=== PATIENT | female | born 1975 | race Caucasian/White ===

== ENCOUNTER 2021-02-17 12:57 | Outpatient (REF) | payer OTHER, SELFPAY ==
--- NOTE | 2021-02-17 13:55 | MHC.AU.HAS ---
Hearing Aid Evaluation Date of Visit: 02/17/21 Historical Information: Description of Hearing: Overall mild/moderate mixed hearing loss in the right ear. Left ear is normal from 250-4000 Hz, sloping to moderate sensorineural hearing loss at 8000 Hz Summary: Patient is followed by [facility]. She was medically cleared for a right-sided hearing aid by Dr. Sequeira. Patient reports she has worn a hearing aid in the past, but lost it around 2011 when it fell out of her ear. Hearing aid options were discussed. Patient would like a BTE style, as she feels it would stay in her ear better than her previous one. She would also like rechargeable for ease of use. Hearing Aid Prescription: Based on the individual?s shared listening needs, communication environments, dexterity, desire for connectivity, and personal preferences, the following prescription for amplification has been made: Right ear: Compliance Aide: Indow Windows Model: Evolv AI 1600 BTE R Battery Size: Rechargeable Color: White Type of Mold: Microsonic M2000 Skeleton Red Action Taken/Action Needed: Earmold Impressions Taken Hearing Instrument Fitting to be scheduled when materials arrive Primary Diagnosis: H90.71 Mixed HL, Unilateral, Right Ear, W/Unrestricted Contralateral Signature: Provider: Floyd Smith, CCC-A
== END 2021-02-17 12:58 | disposition home or self-care (01) ==
LOC: HO.HAP 12:57
PROVIDERS: Visit Provider Internal Medicine
DX: Z46.1 Encounter for fitting and adjustment of hearing aid (principal); H90.71 Mixed conductive and sensorineural hearing loss, unilateral, right ear, with unrestricted hearing on the contralateral side
CPT/HCPCS: 92590; V5275

== ENCOUNTER 2021-03-24 12:36 | Outpatient (REF) | payer OTHER, SELFPAY | END 2021-03-24 12:37 | disposition home or self-care (01) | LOC: HO.HAP 12:36 | PROVIDERS: PCP Internal Medicine; Visit Provider Otolaryngology | DX: Z46.1 Encounter for fitting and adjustment of hearing aid (principal); H90.71 Mixed conductive and sensorineural hearing loss, unilateral, right ear, with unrestricted hearing on the contralateral side | CPT/HCPCS: V5011; V5020; V5241; V5257; V5264 ==

== ENCOUNTER 2021-06-16 11:36 | Outpatient (REF) | payer OTHER, SELFPAY ==
--- NOTE | 2021-06-16 13:56 | MHC.AU.FUR ---
Hearing Instrument Follow-Up Date of Visit: 06/16/21 Right Ear: Pusher Operator: Cyndee Model: Evolv AI 1600 BTE R Serial Number: [id number] Repair Warranty: 06/11/2024 Loss and Damage Warranty: 06/11/2024 Battery Size: Rechargeable Color: White Tubing: Double Bend Type of Mold: Microsonic M2000 Skeleton Red Dispensed By: [facility] Date of Fittin03/24/2021 Follow-Up Summary: Patient reports she is experiencing irritation/discomfort after the aid is in the ear for awhile. Has progressed since being fit with aid. Otoscopy is unremarkable, but patient has not been wearing the aid for several weeks. After asking several questions about the problem, decided to try a power and a closed dome on slim tube with patient still reporting discomfort when placed in ear. Asked more questions. Patient has history of Fibromyalgia which fluctuates and I question if a flair up is making the nerve endings in the ear canal more sensitive. Totally cut down the canal length of the earmold with patient reporting improved comfort while in office. Recommendations (Other): Advised patient to call me next week to discuss how she is feeling. If all is well, I will have her use as is. If still a problem, will order a remake of the right earmold changing to acrylic material, decreasing to very short canal length, and make clear (possibly the red dye may be causing a reaction). Diagnosis Code(s):Primary Diagnosis: H90.71 Mixed HL, Unilateral, Right Ear, W/Unrestricted Contralateral Signature:Provider: Floyd Abdullahi, [facility]
== END 2021-06-16 11:37 | disposition home or self-care (01) ==
LOC: HO.HAP 11:36
PROVIDERS: Visit Provider Otolaryngology
DX: Z13.89 Encounter for screening for other disorder (principal)

== ENCOUNTER → 2021-10-27 13:35 | Outpatient (BNVA) | payer OTHER, SELFPAY | PROVIDERS: PCP Internal Medicine; Visit Provider Nurse Practitioner Family | DX: M25.511 Pain in right shoulder (principal); M25.562 Pain in left knee; G89.29 Other chronic pain | CPT/HCPCS: 99202 ==

== ENCOUNTER 2022-01-17 06:03 | Outpatient (REF) | payer OTHER, SELFPAY ==
--- NOTE | ~2022-01-17 | FL_ITS ---
EXAMINATION: XR FLUOROSCOPY WITH IMAGES CLINICAL INFORMATION: Pain right shoulder. COMPARISON: None. TECHNIQUE: Fluoroscopy performed by Juli. Fluoroscopy time: 0.3 minutes. Cumulative Dose: 4.56 mGy. DAP: 0.445 Gy-cm2. Images: 2. FINDINGS: There is a needle positioned along the superior aspect of the scapula with contrast opacifying the soft tissues. No visible acute fracture or bony abnormality seen. FL/FL guidance in treatment room IMPRESSION: Fluoroscopy guidance was provided to the referrer for pain management.
== END 2022-01-17 06:04 | disposition home or self-care (01) ==
LOC: CF 06:03
PROVIDERS: Visit Provider Internal Medicine
DX: M25.511 Pain in right shoulder (principal); G89.29 Other chronic pain
CPT/HCPCS: 64418

== ENCOUNTER → 2022-05-25 10:03 | Outpatient (BNVA) | payer OTHER, SELFPAY | PROVIDERS: PCP Internal Medicine; Visit Provider Internal Medicine | DX: M25.511 Pain in right shoulder (principal); G89.29 Other chronic pain; M79.18 Myalgia, other site | CPT/HCPCS: 20553; 99212 ==

== ENCOUNTER → 2022-07-06 10:46 | Outpatient (BNVA) | payer OTHER, SELFPAY | PROVIDERS: PCP Internal Medicine; Visit Provider Internal Medicine | DX: M25.511 Pain in right shoulder (principal); G89.29 Other chronic pain | CPT/HCPCS: 99212 ==

== ENCOUNTER 2022-09-05 05:49 | Outpatient (REF) | payer OTHER, SELFPAY ==
--- NOTE | ~2022-09-05 | FL_ITS ---
EXAMINATION: XR FLUOROSCOPY WITH IMAGES CLINICAL INFORMATION: Intraprocedural fluoroscopy provided. COMPARISON: None available. TECHNIQUE: Fluoroscopy Supervised By: . Fluoroscopy Time: 0.3 minutes. Cumulative Dose: 5.49 mGy. Images: 2. FL/FL guidance in treatment room IMPRESSION: Intraoperative procedure fluoroscopy provided for bilateral shoulders.
== END 2022-09-05 05:50 | disposition home or self-care (01) ==
LOC: CF 05:49
PROVIDERS: Visit Provider Internal Medicine
DX: M25.511 Pain in right shoulder (principal); M25.512 Pain in left shoulder; G89.29 Other chronic pain
CPT/HCPCS: 20610; J3301

== ENCOUNTER → 2022-10-05 10:04 | Outpatient (BNVA) | payer OTHER, SELFPAY | PROVIDERS: PCP Internal Medicine; Visit Provider Internal Medicine | DX: M25.511 Pain in right shoulder (principal); M25.512 Pain in left shoulder; G89.29 Other chronic pain | CPT/HCPCS: 99212 ==

== ENCOUNTER 2022-12-07 09:44 | Outpatient (AMB) | payer OTHER, SELFPAY ==
[2022-12-07 09:54] VITALS: BP 134/82; PULSE 90; RESP 14; O2SAT 94; BMI 60.2
--- NOTE | 2022-12-07 09:54 | A.OFFVIS_ITS ---
Intake Vital Signs 12/07/22 09:54 Height 5 ft 3 in Weight 340 lb BMI 60.2 BP 134/82 Blood Pressure Location Lt radial Position Sitting Respiration 14 Pulse 90 Pulse Source Pulse Oximeter Pulse Oximetry (%) 94 Oxygen Delivery Method Room Air Intake Visit Reasons: Elias intraarticular shoulder inj Allergies lisinopril Allergy (Unknown, Verified 10/05/22 10:08) tremors Penicillins Allergy (Unknown, Verified 10/05/22 10:08) Hives HPI Elias intraarticular shoulder inj 2 HPI Details 47-year-old female is presenting today for bilateral intraarticular shoulder injection. Denies any recent cough, cold, infection, fever or other significant changes in medical history since last office visit. Past procedures: 09/05/22: Bilateral glenohumeral Kenalog injections under fluoroscopy: 50% relief. 05/25/22: Trigger points injections: No relief. 01/17/22: Right Diagnostic Suprascapular Injection ? 90% relief for 2 days. [facility] Medical History (Updated 09/05/22 @ 13:22 by Dragan Espinoza MD) Allergic rhinitis Asthma B12 deficiency Cuenca esophagus Carpal tunnel syndrome Class 3 severe obesity due to excess calories with body mass index (BMI) of 50.0 to 59.9 in adult Cutaneous lupus erythematosus Cyst of ovary Depression, unspecified Eczema Gastric atony GERD (gastroesophageal reflux disease) Hearing loss Hiatal hernia Hypertension Internal hemorrhoid Learning disability Migraine, unspecified, not intractable, without status migrainosus Onychomycosis Partial tear of right rotator cuff Polycystic ovaries Snores Unspecified urinary incontinence Vitamin D deficiency Surgical History (Updated 10/27/21 @ 14:01 by Samantha Clark) H/O arthroscopic knee surgery H/O bariatric surgery History of ear surgery Review of Systems Const All systems reviewed & are unremarkable except as noted in HPI and below Physical Exam Vital Signs: Last Vital Signs Pulse 90 12/07/22 09:54 Resp 14 12/07/22 09:54 BP 134/82 12/07/22 09:54 Pulse Ox 94 12/07/22 09:54 Oxygen Delivery Method Room Air 12/07/22 09:54 BMI result Body Mass Index 60.2 General: Appears afebrile. Alert and oriented. Mood and affect appropriate. Follows and participates in conversation appropriately. Respiratory effort is unlabored. Able to transition from sit to stand unassisted. Ambulates with bilaterally normal heel strike and toe off. Office Procedures Joint Injection/Drain Joint Injection/Drain Details: Bilateral glenohumeral steroid injections under ultrasound guidance Primary Site: right shoulder Secondary Site: left shoulder Prep: site was prepped using sterile technique Injected: 40 mg of, Kenalog, with 3 mL of, 1% plain lidocaine, 0.25% bupivacaine and in the joint Approach Used: anteromedial Procedure: The patient tolerated the procedure well Coding Details: An ultrasound image of the injection was taken and stored in the permanent record. 67098 - Glenohumeral/Tronchanteric Bursa/Intraarticular (Bilateral with US.) Procedure code (CPT) selection complete Results Reviewed Results Reviewed: No imaging is available for review. Assessment & Plan Assessment & Plan (1) Chronic left shoulder pain: Code(s): M25.512 - Pain in left shoulder; G89.29 - Other chronic pain (2) Chronic right shoulder pain: Code(s): M25.511 - Pain in right shoulder; G89.29 - Other chronic pain Plan Patient is status post bilateral glenohumeral Kenalog injections under US guidance. Patient tolerated procedure well and was discharged home in stable condition with discharge instructions. All questions were answered. We will follow-up in two weeks via telephone or in clinic to assess response to therapy. A follow-up appointment was made during today's visit. Scribed for Dr. Espinoza by Gaston Dias, medical nurse, on 12/07/2022. I, Dr. Espinoza, have personally reviewed and agree with the information entered by the scribe. Coding Level of Care Code Procedure Only Diagnoses Chronic left shoulder pain M25.512; G89.29 Chronic right shoulder pain M25.511; G89.29 CPT Codes Coding - Joint 7: 84064 - Glenohumeral/Tronchanteric Bursa/Intraarticular ( [id number])
== END 2022-12-07 10:14 | disposition home or self-care (01) ==
PROVIDERS: PCP Internal Medicine; Visit Provider Internal Medicine
DX: M25.512 Pain in left shoulder (principal); G89.29 Other chronic pain; M25.511 Pain in right shoulder
CPT/HCPCS: 20611

== ENCOUNTER → 2022-12-07 09:44 | Outpatient (BNVA) | payer OTHER, SELFPAY | PROVIDERS: PCP Internal Medicine; Visit Provider Internal Medicine | DX: M25.512 Pain in left shoulder (principal); M25.511 Pain in right shoulder; G89.29 Other chronic pain | CPT/HCPCS: 20610; J2920 ==

== ENCOUNTER 2023-03-08 10:03 | Outpatient (AMB) | payer OTHER, SELFPAY ==
[2023-03-08 10:18] VITALS: RESP 12
--- NOTE | 2023-03-08 10:18 | A.OFFVIS_ITS ---
Intake Vital Signs 03/08/23 10:18 Height 5 ft 3 in Blood Pressure Location Lt radial Position Sitting Respiration 12 Pulse Source Pulse Oximeter Intake Visit Reasons: BILATERAL INTRA-ARTICULAR SHOULDER INJ/CONF Allergies lisinopril Allergy (Unknown, Verified 10/05/22 10:08) tremors Penicillins Allergy (Unknown, Verified 10/05/22 10:08) Hives HPI BILATERAL INTRA-ARTICULAR SHOULDER INJ/CONF HPI Details 48-year-old female who presents today to the office for a bilateral intraarticular shoulder injection. Denies any recent cough, cold, infection, fever or other significant changes in medical history since last office visit. Past procedures: 12/07/22: Bilateral glenohumeral steroid injections under ultrasound guidance: 50% relief. 09/05/22: Bilateral glenohumeral Kenalog injections under fluoroscopy: 50% relief. 05/25/22: Trigger points injections: No relief. 01/17/22: Right Diagnostic Suprascapular Injection ? 90% relief for 2 days. [facility] Medical History (Updated 09/05/22 @ 13:22 by Dragan Espinoza MD) Cutaneous lupus erythematosus Cyst of ovary Hearing loss Learning disability Snores Polycystic ovaries Onychomycosis Hiatal hernia Vitamin D deficiency B12 deficiency GERD (gastroesophageal reflux disease) Allergic rhinitis Hypertension Asthma Gastric atony Class 3 severe obesity due to excess calories with body mass index (BMI) of 50.0 to 59.9 in adult Internal hemorrhoid Eczema Carpal tunnel syndrome Unspecified urinary incontinence Depression, unspecified Migraine, unspecified, not intractable, without status migrainosus Cuenca esophagus Partial tear of right rotator cuff Surgical History (Updated 10/27/21 @ 14:01 by Samantha Clark) History of ear surgery H/O arthroscopic knee surgery H/O bariatric surgery Review of Systems Const All systems reviewed & are unremarkable except as noted in HPI and below Physical Exam Vital Signs: Last Vital Signs Resp 12 03/08/23 10:18 General: Appears afebrile. Alert and oriented. Mood and affect appropriate. Follows and participates in conversation appropriately. Respiratory effort is unlabored. Able to transition from sit to stand unassisted. Ambulates with bilaterally normal heel strike and toe off. Office Procedures Joint Injection/Drain Joint Injection/Drain Details: Bilateral glenohumeral injections, ultrasound guided. Primary Site: right shoulder Secondary Site: left shoulder Prep: site was prepped using sterile technique Injected: 20 mg of, Kenalog (on each side), with 3 mL of, 0.25% bupivacaine and in the joint (bilateral) Approach Used: posterolateral Procedure: The patient tolerated the procedure well Coding Details: An ultrasound image of the injection was taken and stored in the permanent record. - Glenohumeral with ultrasound guidance (Bilateral ) Procedure code (CPT) selection complete Results Reviewed Results Reviewed: No imaging is available for review. Assessment & Plan Assessment & Plan (1) Chronic right shoulder pain: Code(s): M25.511 - Pain in right shoulder; G89.29 - Other chronic pain (2) Chronic left shoulder pain: Code(s): M25.512 - Pain in left shoulder; G89.29 - Other chronic pain Plan Patient is status post bilateral glenohumeral injections, ultrasound guided. Patient tolerated procedure well and was discharged home in stable condition with discharge instructions. All questions were answered. Follow-up as needed for repeat injection. Scribed for Dr. Espinoza by Gaston Dias manager medical device, on 03/08/2023. I, Dr. Espinoza, have personally reviewed and agree with the information entered by the scribe. Coding Level of Care Code Procedure Only Diagnoses Chronic right shoulder pain M25.511; G89.29 Chronic left shoulder pain M25.512; G89.29 CPT Codes Coding - Joint 8: - Glenohumeral with ultrasound guidance ([id number])
== END 2023-03-08 10:36 | disposition home or self-care (01) ==
PROVIDERS: PCP Internal Medicine; Visit Provider Internal Medicine
DX: M25.511 Pain in right shoulder (principal); M25.512 Pain in left shoulder
CPT/HCPCS: 20611

== ENCOUNTER → 2023-03-08 10:03 | Outpatient (BNVA) | payer OTHER, SELFPAY | PROVIDERS: PCP Internal Medicine; Visit Provider Internal Medicine | DX: M25.511 Pain in right shoulder (principal); M25.512 Pain in left shoulder; G89.29 Other chronic pain | CPT/HCPCS: 20611; J0665; J3301 ==

== ENCOUNTER 2023-06-21 09:22 | Outpatient (AMB) | payer OTHER, SELFPAY ==
--- NOTE | 2023-06-21 09:29 | MHC.OFFVIS ---
Intake Vital Signs 06/21/23 09:30 Height 5 ft 3 in Weight 340 lb BMI 60.2 BP 184/86 H Blood Pressure Location Rt radial Position Sitting Respiration 12 Pulse 86 Pulse Source Pulse Oximeter Pulse Oximetry (%) 99 Oxygen Delivery Method Room Air Intake Visit Reasons: Bilateral Intra-Articular Shoulder Injection Allergies lisinopril Allergy (Unknown, Verified 10/05/22 10:08) tremors Penicillins Allergy (Unknown, Verified 10/05/22 10:08) Hives HPI Bilateral Intra-Articular Shoulder Injection HPI Details 48-year-old female who presents today to the office for a bilateral intraarticular shoulder injection. The patient reports about 40-50% relief following the procedure. Denies any recent cough, cold, infection, fever or other significant changes in medical history since last office visit. She states that the previous fluoroscopic guided injection using the anterior approach was more helpful than the ultrasound-guided posterior approach that was done last time. She also reports axial low back pain. She states that bending over worsens the pain. She is able to lay down in prone position. Her weight was 340 lbs. She is currently on physical therapy for weight loss. Past procedures: 03/08/23: Bilateral glenohumeral injections, ultrasound guided: 40-50 % relief. 12/07/22: Bilateral glenohumeral steroid injections under ultrasound guidance: 50% relief. 09/05/22: Bilateral glenohumeral Kenalog injections under fluoroscopy: 50% relief. 05/25/22: Trigger points injections: No relief. 01/17/22: Right Diagnostic Suprascapular Injection ? 90% relief for 2 days. [facility] Medical History (Updated 06/24/23 @ 09:48 by Dragan Espinoza MD) Cutaneous lupus erythematosus Cyst of ovary Hearing loss Learning disability Snores Polycystic ovaries Onychomycosis Hiatal hernia Vitamin D deficiency B12 deficiency GERD (gastroesophageal reflux disease) Allergic rhinitis Hypertension Asthma Gastric atony Class 3 severe obesity due to excess calories with body mass index (BMI) of 50.0 to 59.9 in adult Internal hemorrhoid Eczema Carpal tunnel syndrome Unspecified urinary incontinence Depression, unspecified Migraine, unspecified, not intractable, without status migrainosus Cuenca esophagus Partial tear of right rotator cuff Surgical History (Updated 10/27/21 @ 14:01 by Samantha Clark) History of ear surgery H/O arthroscopic knee surgery H/O bariatric surgery Review of Systems Const All systems reviewed & are unremarkable except as noted in HPI and below Physical Exam Vital Signs: Last Vital Signs Pulse 86 06/21/23 09:30 Resp 12 06/21/23 09:30 BP 184/86 H 06/21/23 09:30 Pulse Ox 99 06/21/23 09:30 Oxygen Delivery Method Room Air 06/21/23 09:30 BMI result Body Mass Index 60.2 General: Appears afebrile. Alert and oriented. Mood and affect appropriate. Follows and participates in conversation appropriately. Respiratory effort is unlabored. Able to transition from sit to stand unassisted. Ambulates with bilaterally normal heel strike and toe off. Facet loading and lumbar extension reproduces pain in the back. Office Procedures Joint Injection/Drain Joint Injection/Drain Details: Bilateral intraarticular glenohumeral injections under ultrasound guidance Primary Site: right shoulder Secondary Site: left shoulder Prep: site was prepped using sterile technique Injected: 20 mg of, Kenalog, with 0.25 mL of (ropivacaine), with 3 mL of and in the joint Approach Used: anterolateral Procedure: The patient tolerated the procedure well Coding Details: An ultrasound image of the injection was taken and stored in the permanent 00055 - Glenohumeral with ultrasound guidance (bilateral ) Procedure code (CPT) selection complete Results Reviewed Results Reviewed: No imaging is available for review. Assessment & Plan Assessment & Plan (1) Chronic right shoulder pain: Code(s): M25.511 - Pain in right shoulder; G89.29 - Other chronic pain (2) Chronic left shoulder pain: Code(s): M25.512 - Pain in left shoulder; G89.29 - Other chronic pain (3) Lumbar spondylosis: Code(s): M47.816 - Spondylosis without myelopathy or radiculopathy, lumbar region Plan Patient is status post bilateral intraarticular glenohumeral injections under ultrasound guidance. Patient tolerated procedure well and was discharged home in stable condition with discharge instructions. All questions were answered. We will follow-up in two weeks via telephone or in clinic to assess response to therapy. A follow-up appointment was made during today's visit. For her axial low back pain will schedule her for bilateral diagnostic L3-L4-L5 medial branch blocks. Discussed the risks and benefits of the procedure with the patient in detail. All questions were answered. The patient is on board with the plan. Scribed for Dr. Espinoza by Gaston Dias, medical affairs manager, on 06/21/2023. I, Dr. Espinoza, have personally reviewed and agree with the information entered by the scribe. Coding Level of Care Code Est Pt Level 3 (94381) Diagnoses Chronic right shoulder pain M25.511; G89.29 Chronic left shoulder pain M25.512; G89.29 Lumbar spondylosis M47.816 CPT Codes Coding - Joint 8: 12723 - Glenohumeral with ultrasound guidance ([id number])
[2023-06-21 09:30] VITALS: BP 184/86; PULSE 86; RESP 12; O2SAT 99; BMI 60.2
== END 2023-06-21 09:59 | disposition home or self-care (01) ==
PROVIDERS: PCP Internal Medicine; Visit Provider Internal Medicine
DX: M25.511 Pain in right shoulder (principal); M25.512 Pain in left shoulder
CPT/HCPCS: 20611

== ENCOUNTER → 2023-06-21 09:22 | Outpatient (BNVA) | payer OTHER, SELFPAY | PROVIDERS: PCP Internal Medicine; Visit Provider Internal Medicine | DX: G89.29 Other chronic pain (principal); M25.511 Pain in right shoulder; M25.512 Pain in left shoulder; M47.816 Spondylosis without myelopathy or radiculopathy, lumbar region | CPT/HCPCS: 20611; J2795; J3301 ==

== ENCOUNTER → 2023-10-18 10:10 | Outpatient (BNVA) | payer OTHER, SELFPAY | PROVIDERS: PCP Internal Medicine; Visit Provider Internal Medicine | DX: M47.816 Spondylosis without myelopathy or radiculopathy, lumbar region (principal); M25.511 Pain in right shoulder; M25.512 Pain in left shoulder; G89.29 Other chronic pain | CPT/HCPCS: 20611 ==

== ENCOUNTER 2024-01-17 10:20 | Outpatient (AMB) | payer OTHER, SELFPAY ==
--- NOTE | 2024-01-17 10:22 | A.OFFVIS_ITS ---
Vital Signs 01/17/24 10:23 Height 5 ft 3 in BP 192/89 H Blood Pressure Location Lt radial Position Sitting Respiration 16 Pulse 101 H Pulse Source Pulse Oximeter Pulse Oximetry (%) 97 Oxygen Delivery Method Room Air Intake Visit Reasons: BILATERAL INTRA-ARTICULAR SHOULDER INJECTIONS Allergies lisinopril Allergy (Unknown, Verified 01/17/24 10:25) tremors Penicillins Allergy (Unknown, Verified 01/17/24 10:25) Hives Medication List - Last Reconciled 01/17/24 by Anna Campbell LPN albuterol sulfate 90 mcg/actuation (ProAir HFA) 0 mcg inhalation ascorbate calcium (vitamin C) 500 mg PO BID calcium carbonate (Tums) 200 mg PO BID erenumab-aooe (Aimovig Autoinjector) mg subcut ergocalciferol (vitamin D2) 1,250 mcg PO QWEEK fluticasone propion-salmeterol 115-21 mcg/actuation (Advair HFA) 2 puffs inhalation BID gabapentin 100 mg PO DAILY gabapentin 300 mg PO BEDTIME losartan 100 mg PO DAILY metformin 250 mg PO BID multivitamin 1 tab PO BID norethindrone acetate 5 mg PO DAILY omeprazole 20 mg PO BID rabeprazole 20 mg PO BID rizatriptan 10 mg PO ONCE vibegron (Gemtesa) 75 mg PO DAILY vitamins B1 B6 B12 tabs PO HPI HPI BILATERAL INTRA-ARTICULAR SHOULDER INJECTIONS: Details: 49-year-old female who presents today to the office for bilateral intraarticular shoulder injections. Denies any recent cough, cold, infection, fever or other significant changes in medical history since last office visit.? Past procedures: 10/18/23: Bilateral intraarticular glenohumeral injections, ultrasound guided, anterior approach on the right side and posterolateral approach on the left side.: % relief. 06/21/23: Bilateral intraarticular glenohumeral injections under ultrasound guidance: 50% relief. 03/08/23: Bilateral glenohumeral injections, ultrasound guided: 40-50 % relief. 12/07/22: Bilateral glenohumeral steroid injections under ultrasound guidance: 50% relief. 09/05/22: Bilateral glenohumeral Kenalog injections under fluoroscopy: 50% relief. 05/25/22: Trigger points injections: No relief. 10/12/22: Right Diagnostic Suprascapular Injection ? 90% relief for 2 days. [facility] Medical History (Updated 06/24/23 @ 09:48 by Dragan Espinoza MD) Cutaneous lupus erythematosus Cyst of ovary Hearing loss Learning disability Snores Polycystic ovaries Onychomycosis Hiatal hernia Vitamin D deficiency B12 deficiency GERD (gastroesophageal reflux disease) Allergic rhinitis Hypertension Asthma Gastric atony Class 3 severe obesity due to excess calories with body mass index (BMI) of 50.0 to 59.9 in adult Internal hemorrhoid Eczema Carpal tunnel syndrome Unspecified urinary incontinence Depression, unspecified Migraine, unspecified, not intractable, without status migrainosus Cuenca esophagus Partial tear of right rotator cuff Surgical History (Updated 10/27/21 @ 14:01 by Samantha Clark) History of ear surgery H/O arthroscopic knee surgery H/O bariatric surgery Review of Systems Const All systems reviewed & are unremarkable except as noted in HPI and below Physical Exam Vital Signs: Last Vital Signs Pulse 101 H 01/17/24 10:23 Resp 16 01/17/24 10:23 BP 192/89 H 01/17/24 10:23 Pulse Ox 97 01/17/24 10:23 Oxygen Delivery Method Room Air 01/17/24 10:23 General: Appears afebrile. Alert and oriented. Mood and affect appropriate. Follows and participates in conversation appropriately. Respiratory effort is unlabored. Able to transition from sit to stand unassisted. Ambulates with bilaterally normal heel strike and toe off. Office Procedures Joint Injection/Aspiration Joint Injection/Aspiration Details: Bilateral intraarticular glenohumeral injections, ultrasound guided, anterior approach. Primary Site: right shoulder Secondary Site: left shoulder Prep: site was prepped using sterile technique Injected: 20 mg of, Kenalog, with 0.25 mL of (ropivacaine), with 3 mL of and in the joint (both sides) Approach Used: anterior Coding Details: An ultrasound image of the injection was taken and stored in the permanent record - Glenohumeral with ultrasound guidance (bilateral ) Procedure code (CPT) selection complete Results Reviewed Results Reviewed: No imaging is available for review. Assessment & Plan Assessment & Plan (1) Chronic left shoulder pain: Code(s): M25.512 - Pain in left shoulder; G89.29 - Other chronic pain Category: Medical (2) Chronic right shoulder pain: Code(s): M25.511 - Pain in right shoulder; G89.29 - Other chronic pain Category: Medical Plan Patient is status post bilateral intraarticular glenohumeral injections, ultrasound guided, anterior approach. Patient tolerated procedure well and was discharged home in stable condition with discharge instructions.? All questions were answered. We will follow-up in two weeks via telephone or in clinic to assess response to therapy. A follow-up appointment was made during today's visit. Scribed for Dr. Espinoza by Gaston Dias medical collections specialist, on 01/17/2024. I, Dr. Espinoza, have personally reviewed and agree with the information entered by the scribe. Coding Level of Care Code Procedure Only Diagnoses Chronic left shoulder pain M25.512; G89.29 Chronic right shoulder pain M25.511; G89.29 CPT Codes Coding - Joint 8: 38768 - Glenohumeral with ultrasound guidance ([id number])
[2024-01-17 10:23] VITALS: BP 192/89; PULSE 101; RESP 16; O2SAT 97
== END 2024-01-17 10:42 | disposition home or self-care (01) ==
PROVIDERS: PCP Internal Medicine; Visit Provider Internal Medicine
DX: M25.512 Pain in left shoulder (principal); M25.511 Pain in right shoulder
CPT/HCPCS: 20611

== ENCOUNTER → 2024-01-17 10:20 | Outpatient (BNVA) | payer OTHER, SELFPAY | PROVIDERS: PCP Internal Medicine; Visit Provider Internal Medicine | DX: M25.512 Pain in left shoulder (principal); M25.511 Pain in right shoulder; G89.29 Other chronic pain | CPT/HCPCS: 20611; J2795; J3301 ==

== ENCOUNTER 2024-04-10 07:54 | Outpatient (AMB) | payer OTHER, SELFPAY ==
--- NOTE | 2024-04-10 07:57 | A.OFFVIS_ITS ---
Vital Signs 04/10/24 08:00 Height 5 ft 3 in Weight 340 lb BMI 60.2 BP 164/83 H Blood Pressure Location Rt radial Position Sitting Respiration 16 Pulse 80 Pulse Source Pulse Oximeter Pulse Oximetry (%) 97 Oxygen Delivery Method Room Air Intake Visit Reasons: BILATERAL INTRA-ARTICULAR SHOULDER INJECTIONS Allergies lisinopril Allergy (Unknown, Verified 04/10/24 08:02) tremors Penicillins Allergy (Unknown, Verified 04/10/24 08:02) Hives Medication List - Last Reconciled 04/10/24 by Anna Campbell LPN albuterol sulfate 90 mcg/actuation (ProAir HFA) 0 mcg inhalation ascorbate calcium (vitamin C) 500 mg PO BID calcium carbonate (Tums) 200 mg PO BID erenumab-aooe (Aimovig Autoinjector) mg subcut ergocalciferol (vitamin D2) 1,250 mcg PO QWEEK fluticasone propion-salmeterol 115-21 mcg/actuation (Advair HFA) 2 puffs inhalation BID gabapentin 100 mg PO DAILY gabapentin 300 mg PO BEDTIME losartan 100 mg PO DAILY metformin 250 mg PO BID multivitamin 1 tab PO BID norethindrone acetate 5 mg PO DAILY omeprazole 20 mg PO BID rabeprazole 20 mg PO BID rizatriptan 10 mg PO ONCE vibegron (Gemtesa) 75 mg PO DAILY vitamins B1 B6 B12 tabs PO HPI HPI BILATERAL INTRA-ARTICULAR SHOULDER INJECTIONS: Details: Patient presents for scheduled procedure. Denies any recent cough, cold, infection, fever or other significant changes in medical history since last office visit. [facility] Medical History (Updated 06/24/23 @ 09:48 by Dragan Espinoza MD) Cutaneous lupus erythematosus Cyst of ovary Hearing loss Learning disability Snores Polycystic ovaries Onychomycosis Hiatal hernia Vitamin D deficiency B12 deficiency GERD (gastroesophageal reflux disease) Allergic rhinitis Hypertension Asthma Gastric atony Class 3 severe obesity due to excess calories with body mass index (BMI) of 50.0 to 59.9 in adult Internal hemorrhoid Eczema Carpal tunnel syndrome Unspecified urinary incontinence Depression, unspecified Migraine, unspecified, not intractable, without status migrainosus Cuenca esophagus Partial tear of right rotator cuff Surgical History (Updated 10/27/21 @ 14:01 by Samantha Clark) History of ear surgery H/O arthroscopic knee surgery H/O bariatric surgery Physical Exam Vital Signs: Last Vital Signs Pulse 80 04/10/24 08:00 Resp 16 04/10/24 08:00 BP 164/83 H 04/10/24 08:00 Pulse Ox 97 04/10/24 08:00 Oxygen Delivery Method Room Air 04/10/24 08:00 BMI result Body Mass Index 60.2 Office Procedures AMB Joint Injection/Aspiration Joint Injection/Aspiration Primary Site: right shoulder Secondary Site: left shoulder Prep: site was prepped using sterile technique Injected: 40 mg of, Kenalog, with 3 mL of (Ropivacaine 0.25%) and in the joint Approach Used: anterior Procedure: The patient tolerated the procedure well Coding Details: An ultrasound image of the injection was taken and stored in the permanent record - Glenohumeral with ultrasound guidance Procedure code (CPT) selection complete Assessment & Plan Assessment & Plan (1) Chronic left shoulder pain: Code(s): M25.512 - Pain in left shoulder; G89.29 - Other chronic pain Category: Medical (2) Chronic right shoulder pain: Code(s): M25.511 - Pain in right shoulder; G89.29 - Other chronic pain Category: Medical Plan Patient is status post bilateral intra-articular glenohumeral injections under ultrasound guidance. Patient tolerated procedure well and was discharged home in stable condition with discharge instructions. All questions were answered. We will follow-up via telephone or in clinic to assess response to therapy. A follow-up appointment was made during today's visit. Coding Level of Care Code Procedure Only Diagnoses Chronic left shoulder pain M25.512; G89.29 Chronic right shoulder pain M25.511; G89.29 CPT Codes Coding - Joint 8: - Glenohumeral with ultrasound guidance ([id number])
[2024-04-10 08:00] VITALS: BP 164/83; PULSE 80; RESP 16; O2SAT 97; BMI 60.2
== END 2024-04-10 08:55 | disposition home or self-care (01) ==
PROVIDERS: PCP Internal Medicine; Visit Provider Internal Medicine
DX: M25.512 Pain in left shoulder (principal); G89.29 Other chronic pain; M25.511 Pain in right shoulder
CPT/HCPCS: 20611

== ENCOUNTER → 2024-04-10 07:54 | Outpatient (BNVA) | payer OTHER, SELFPAY | PROVIDERS: PCP Internal Medicine; Visit Provider Internal Medicine | DX: M25.512 Pain in left shoulder (principal); M25.511 Pain in right shoulder; G89.29 Other chronic pain | CPT/HCPCS: 20611 ==

== ENCOUNTER 2024-06-12 08:40 | Outpatient (AMB) | payer OTHER, SELFPAY ==
--- NOTE | 2024-06-12 08:47 | A.OFFVIS_ITS ---
Vital Signs 06/12/24 08:50 Height 5 ft 3 in Weight 333 lb BMI 59.0 BP 167/78 H Blood Pressure Location Rt radial Position Sitting Pulse 95 Pulse Source Pulse Oximeter Pulse Oximetry (%) 96 Oxygen Delivery Method Room Air Intake Visit Reasons: Follow Up Leather Production Worker Required: No Pile Driver Operator Barge Mounted: Pile Driver Operator Barge Mounted Present Accompanied by: Candida Deb Allergies lisinopril Allergy (Unknown, Verified 06/12/24 08:53) tremors Penicillins Allergy (Unknown, Verified 06/12/24 08:53) Hives HPI HPI Follow Up: Details: History of Present Illness The patient is a 49-year-old female presenting with chronic shoulder pain and low back pain, conditions for which she has previously received injections. The shoulder pain, treated with bilateral glenohumeral injections, has shown positive responses, enabling her to manage physical tasks better. The back pain, compounded by fibromyalgia, impacts her sleep and daily functionality. Despite noted improvements with interventions, persistent discomfort and balance issues prompt consideration for physical therapy. Pain Description - Onset: Chronic - Quality and Character: Persistent discomfort - Primary Location: Shoulders and low back - Areas of Radiation: None noted - Exacerbating Factors: Fibromyalgia - Relieving Factors: Shoulder injections show positive outcomes - Interference: Sleep disturbances and balance issues Physical Exam - Musculoskeletal- Bilateral shoulder injection sites noted, sterile preparation with Cloracrep Results Pain Management - Affect: Pain affects sleep and balance, implications of fibromyalgia exacerbate discomfort - Analgesia: Shoulder injections have been utilized with effective relief - Adverse Effects: Pain affects sleep quality - Activities of Daily Living: Pain impacts sleep, balance, and ability to engage in routine activities - Aberrant Drug Related Behaviors: No behaviors discussed Procedure - Bilateral glenohumeral injections: Patient consent obtained, sterile prep, performed using 40 mg Kenalog and 4 mL of 0.25% ropivacaine on each side, anterior approach with ultrasound guidance. Patient tolerated the procedure well with no blood loss. Ultrasound images were saved to the patient's record. [facility] Medical History (Updated 06/24/23 @ 09:48 by Dragan Espinoza MD) Cutaneous lupus erythematosus Cyst of ovary Hearing loss Learning disability Snores Polycystic ovaries Onychomycosis Hiatal hernia Vitamin D deficiency B12 deficiency GERD (gastroesophageal reflux disease) Allergic rhinitis Hypertension Asthma Gastric atony Class 3 severe obesity due to excess calories with body mass index (BMI) of 50.0 to 59.9 in adult Internal hemorrhoid Eczema Carpal tunnel syndrome Unspecified urinary incontinence Depression, unspecified Migraine, unspecified, not intractable, without status migrainosus Cuenca esophagus Partial tear of right rotator cuff Surgical History (Updated 10/27/21 @ 14:01 by Samantha Clark) History of ear surgery H/O arthroscopic knee surgery H/O bariatric surgery Physical Exam Vital Signs: Last Vital Signs Pulse 95 06/12/24 08:50 BP 167/78 H 06/12/24 08:50 Pulse Ox 96 06/12/24 08:50 Oxygen Delivery Method Room Air 06/12/24 08:50 BMI result Body Mass Index 59.0 Assessment & Plan Assessment & Plan (1) Chronic right shoulder pain: Code(s): M25.511 - Pain in right shoulder; G89.29 - Other chronic pain Category: Medical (2) Chronic left shoulder pain: Code(s): M25.512 - Pain in left shoulder; G89.29 - Other chronic pain Category: Medical Plan Plan Status post bilateral shoulder injections with Kenalog and ropivacaine, assisting with enhanced symptom relief. Consider physical therapy for physical therapy for low back pain, balance and functional improvement. Follow-up is scheduled in three months to evaluate response to current treatment and adjust as needed. Patient was informed and verbally consented to the use of an ambient scribe for clinic note documentation during this visit. Discussion Notes During our discussion, I reviewed the planned bilateral shoulder injections, explaining the procedure details, potential benefits, and risks. The patient agreed with the proposed plan. We also addressed her ongoing balance issues and fibromyalgia's impact, highlighting the potential benefits of incorporating physical therapy. A follow-up appointment in three months will monitor progress and the need for further interventions. Patient Instructions - Continue monitoring pain and any changes following today?s injections. - Schedule physical therapy for balance improvement if possible. - Return for follow-up in three months to assess treatment outcomes. - Contact the office for any new or worsening symptoms. Coding Level of Care Code Procedure Only Diagnoses Chronic right shoulder pain M25.511; G89.29 Chronic left shoulder pain M25.512; G89.29
[2024-06-12 08:50] VITALS: BP 167/78; PULSE 95; O2SAT 96; BMI 59.0
--- OUTSIDE RECORDS SUMMARY | 2024-06-12 09:14 | XMS_ITS | Encounter Summary ---
Author Organization [facility] Address [address] [place] [address] Care Team Providers Care Bake Room Worker Name Role Phone Balbina Woods MD Primary Care Provider [phone] Josue Fernandes MD Unavailable [phone] Encounter Details Date Type Department Care Team Description 11/15/2022 Bowling Pin Refinisher Report Medical Records [address] [place] [address] Sudhakar Ellis MD Social History Tobacco Use Types Packs/Day Years Used Date Smoking Tobacco: Former Smokeless Tobacco: Never Comments:in HS Alcohol Use Standard Drinks/Week Comments Yes 0 (1 standard drink = 0.6 oz pur e alcohol) occ Sex Assigned at Date Recorded Not on file Job Start Date Occupation Industry Not on file Not on file Not on file COVID-19 Exposure Response Date Recorded In the last 10 days, have yo u been in contact with someone who was confirmed or suspected to have Coronavirus/COVID-19? No / Unsure 11/06/2022 8:12 AM EDT documented as of this encounter Plan of Treatment Not on file documented as of this encounter Visit Diagnoses Not on filedocumented in this encounter Care Teams Bake Room Worker Relationship Specialty Start Date End Date Balbina Woods MD PCP - General Internal Medicine 02/14/17 Josue Fernandes MD [address] [place], [place] [id number] Specialist Cardiovascular Disease 08/15/22 documented as of this encounter
--- OUTSIDE RECORDS SUMMARY | 2024-06-12 09:14 | XMS_ITS | Encounter Summary ---
Author Organization [facility] Address [address] [place] [address] Care Team Providers Care Trucking Contractor Name Role Phone Balbina Woods MD Primary Care Provider [phone] Josue Fernandes MD Unavailable [phone] Encounter Details Date Type Department Care Team Description 06/23/2021 Pull Through Hooker Report Medical Records [address] [place] [address] Scooby William Social History Tobacco Use Types Packs/Day Years [...] Exposure Response Date Recorded In the last month, have you been in contact with someone who was confirmed or suspected to have Coronavirus / COVID-19? No / Unsure 06/06/2021 8:39 AM EST documented as of this encounter Plan of Treatment Not on file documented as of this encounter Visit Diagnoses Not on filedocumented in this encounter Care Teams Trucking Contractor Relationship Specialty Start Date End Date Balbina Woods MD PCP - General Internal Medicine 02/14/17 Josue Fernandes MD [address] [place] [address] Specialist Cardiovascular Disease 08/15/22 documented as of this encounter
--- OUTSIDE RECORDS SUMMARY | 2024-06-12 09:14 | XMS_ITS | Encounter Summary ---
Author Organization [facility] Address [address] [place] [address] Care Team Providers Care Poultry Farm Supervisor Name Role Phone Balbina Woods MD Primary Care Provider [phone] Josue Fernandes MD Unavailable [phone] Encounter Details Date Type Department Care Team Description 11/02/2022 Release of Information Medical Records [address] [place] [id number] [place] [address] Social History Tobacco Use Types Packs/Day Years Used Date Smoking Tobacco: Former Smokeless Tobacco: Never Comments:in HS Alcohol Use Standard Drinks/Week Comments Yes 0 (1 standard drink = 0.6 oz pur e alcohol) occ Sex Assigned at Date Recorded Not on file Job Start Date Occupation Industry Not on file Not on file Not on file documented as of this encounter Plan of Treatment Not on file documented as of this encounter Visit Diagnoses Not on filedocumented in this encounter Care Teams Poultry Farm Supervisor Relationship Specialty Start Date End Date Balbina Woods MD PCP - General Internal Medicine 02/14/17 Josue Fernandes MD [address] [facility] [address] [place] [address] Specialist Cardiovascular Disease 08/15/22 documented as of this encounter
--- OUTSIDE RECORDS SUMMARY | 2024-06-12 09:14 | XMS_ITS | Encounter Summary ---
Author Organization [facility] Address [address] [place] [address] Care Team Providers Care Flash Oven Operator Name Role Phone Balbina Woods MD Primary Care Provider [phone] Josue Fernandes MD Unavailable [phone] Reason for Visit * Reason Comments E-prescribe Rx Request Encounter Details Date Type Department Care Team Description 01/15/2021 Refill Internal Medicine - [address], [address] [place] [address] Balbina Woods MD [address] [place] [phone] E-prescribe Rx Request Social History Tobacco Use Types Packs/Day Years [...] have Coronavirus / COVID-19? No / Unsure 2021 10:41 AM EDT documented as of this encounter Miscellaneous Notes * Telephone Encounter - Alessandra Drummond M.A. - 01/16/2021 2:58 PM EDT BP Readings from Last 5 Encounters: 01/03/21 132/80 12/23/20 124/84 11/07/20 (!) 142/88 11/04/20 132/84 09/22/20 132/82 * Telephone Encounter - Rachel Ramirez - 01/16/2021 2:32 PM EDT Aarti 07/01/20 Nov 02/24/21 documented in this encounter Plan of Treatment Not on file documented as of this encounter Visit Diagnoses Not on filedocumented in this encounter Care Teams Flash Oven Operator Relationship Specialty Start Date End Date Balbina Woods MD PCP - General Internal Medicine 02/14/17 Josue Fernandes MD [address] [place] [address] Specialist Cardiovascular Disease 08/15/22 documented as of this encounter
--- OUTSIDE RECORDS SUMMARY | 2024-06-12 09:14 | XMS_ITS | Encounter Summary ---
Author Organization [facility] Address [address] [place] [address] Care Team Providers Care Vice President Underwriting Name Role Phone Balbina Woods MD Primary Care Provider [phone] Reason for Referral * Consultation (Routine) - Authorized Specialty Diagnoses / Procedures Referred By Mayte arredondo Referred To Contact Obstetrics and Gynecology Diagnoses Adult general medical examination Balbina Woods MD [address] [address] Phone: tel: fax: Obstetrics & Gynecology [address] [address] Phone: tel: fax: Referral ID Status Reason Start Date Expiration Date Visits Requested Visits Authorized [id number] Authorized Specialty Services Required 06/02/2024 06/02/2025 1 1 * Medications - Pending Review Specialty Diagnoses / Procedures Referred By Mayte arredondo Referred To Contact Diagnoses Chronic migraine with aura without status migrainosus, not intractable Balbina Woods MD [address] [address] Phone: tel: fax: Referral ID Status Reason Start Date Expiration Date V isits Requested Visits Authorized [id number] Pending Review 1 1 * Consultation (Routine) - Authorized Specialty Diagnoses / Procedures Referred By Mayte t Referred To Contact Neurology Diagnoses Nonintractable headache, unspecified chronicity pattern, unspecified headache type Balbina Woods MD [address] [facility] [address] [place] [address] Phone: tel: fax: [facility] [place] [address] [address] [facility] [address] [place] [address] Phone: tel: fax: Referral ID Status Reason Start Date Expiration Date Visits Requested Visits Authorized [id number] Authorized Specialty Services Required 06/02/2024 06/02/2025 1 1 * Consultation (Routine) - Pending Review Specialty Diagnoses / Procedures Referred By Mayte arredondo Referred To Contact Physical Therapy Diagnoses Chronic midline low back pain without sciatica Balbina Woods MD 175 [facility] [address] [place] [address] Phone: tel: fax: [facility] [place] [address] [address] Phone: tel: fax: Referral ID Status Reason Start Date Expiration Date Visits Requested Visits Authorized [id number] Pending Review Specialty Services Required 06/02/2024 06/02/2025 1 1 Reason for Visit * Reason Comments Follow-up 6 months follow up Encounter Details Date Type Department Care Team (Late st Contact Info) Description 06/02/2024 8:30 AM EST Office Visit Internal Medicine - [place] [address] [facility] [address] [place] [phone] Balbina Woods MD 175 [facility] [address] [place] [address] Scabies (Primary Dx); Chronic midline low back pain without sciatica; Nonintractable headache, unspecified chronicity pattern, unspecified headache type; Chronic migraine with aura without status migrainosus, not intractable; Adult general medical examination Social History Tobacco Use Types Packs/Day Years Used Date Smoking Tobacco: Former Smokeless Tobacco: Never Tobacco Cessation:Counseling Given: Not Answered Alcohol Use Standard Drinks/Week Comments Yes 0 (1 standard drink = 0.6 oz pur e alcohol) Comments No Sex and Gender Information Value Date Recorded Sex Assigned at Female 03/04/2024 9:43 AM EST Legal Sex Female 1:04 AM EST Gender Identity Female 03/04/2024 9:43 AM EST Sexual Orientation Not on file documented as of this encounter Last Filed Vital Signs Vital Sign Reading Time Taken Comments Blood Pressure 122/78 06/02/2024 8:23 AM EST Pulse 64 06/02/2024 8:23 AM EST Temperature 36.5 ??C (97.7 ??F) 06/02/2024 8:23 AM ES T Respiratory Rate - - Oxygen Saturation 98% 06/02/2024 8:23 AM EST Inhaled Oxygen Concentration - - Weight 150 kg (330 lb) 06/02/2024 8:23 AM EST Height - - Body Mass Index 58.46 04/21/2024 9:06 AM EST documented in this encounter Ordered Prescriptions Prescription Sig Dispense Quantity Refills Last Filled Start Date End Date permethrin (ELIMITE) 5 % cream Apply to skin from hairline to toes and wash off 8-10 hours later. 60 g 06/02/2024 erenumab-aooe (Aimovig Autoinjector) 70 mg/mL injectionIndicatio ns:Chronic migraine with aura without status migrainosus, not intractable Inject 1 mL (70 mg total) under the skin every 30 (thirty) days. 1 mL 3 06/02/2024 documented in this encounter Progress Notes * Balbina Woods MD - 06/02/2024 8:30 AM EST CHIEF COMPLAINT: Follow-up (6 months follow up ) IDENTIFIER: Karen Jones is a 49 y.o. old female. HPI::hypertension ,GERD, PCOD, morbid obesity, history of bariatric surgery. Patient is using a walker Following bariatric surgeon Noticed rash all over her body, itchy, she think she got it since her mother came out from [facility] 6 weeks ago.??scabies ROS: GENERAL: No malaise, significant weight loss or fever NECK: No lumps, goiter, pain or significant neck swelling RESPIRATORY: No cough, wheezing or shortness of breath CARDIOVASCULAR: No chest pain, leg swelling or palpitations GI: No abdominal discomfort, blood in stools or black stools PSYCH: No sleep disturbance, mood disorder or recent psychosocial stressors. PAST MEDICAL HISTORY: Patient Active Problem List Diagnosis Date Noted Class 3 severe obesity with body mass index (BMI) of 50.0 to 59.9 in adult ([facility]) 01/17/2024 Cubital tunnel syndrome on left 06/05/2023 Cubital tunnel syndrome, right 06/05/2023 Gait instability 05/07/2023 Post-traumatic osteoarthritis of left knee 05/07/2023 Primary osteoarthritis of right knee 05/07/2023 Ingrowing nail 08/10/2022 Palpitations 08/10/2022 Partial tear of right rotator cuff 12/07/2020 Cuenca's esophagus 12/12/2017 Migraine, unspecified, not intractable, without status migrainosus 12/10/2017 Depression 05/31/2017 Urinary incontinence 05/31/2017 Carpal tunnel syndrome 01/29/2017 Eczema 01/29/2017 Internal hemorrhoids 12/27/2016 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 Asthma 10/04/2016 Hypertension 10/04/2016 Allergic rhinitis 02/21/2016 Gastroesophageal reflux disease 12/26/2015 B12 deficiency 03/18/2015 Vitamin D deficiency 03/18/2015 Hiatal hernia 05/17/2014 Onychomycosis 12/28/2013 Hereditary essential tremor 08/21/2013 Polycystic ovaries 08/20/2013 Incomplete emptying of bladder 08/20/2013 Cyst of ovary 05/27/2013 Snores 10/06/2012 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 Learning disability 10/30/2011 Hearing loss 10/03/2011 Pernicious anemia 10/03/2011 Past Surgical History: Procedure Laterality Date GASTRIC BYPASS 08/2014 PROCEDURE: TN GASTRIC RSTCV W/BYP W/SM INT RCNSTJ LIMIT ABSRPJ; COMMENT: gastric sleeve procedure KNEE ARTHROPLASTY Left 01/2014 PROCEDURE: TN ARTHRS KNEE ABRASION ARTHRP/MILITARY PERSONNEL SPECIALIST DRLG/MICROFX OTHER SURGICAL HISTORY PROCEDURE: HISTORICAL EAR SURGERY; COMMENT: myringotomy SOCIAL HISTORY: Social History Tobacco Use Smoking status: Former Smokeless tobacco: Never Substance Use Topics Alcohol use: Yes FAMILY HISTORY: Family History Problem Relation Name Age of Onset Thyroid disease Mother Diabetes Father rheumatoid and osteoartrhritis Family Status Relation Name Status Mother (Not Specified) Father (Not Specified) No partnership data on file MEDICATIONS DISCONTINUED/REORDERED: Medications Discontinued During This Encounter Medication Reason erenumab-aooe (Aimovig Autoinjector) 70 mg/mL injection Reorder ACTIVE MEDICATIONS: Outpatient Medications Marked as Taking for the 06/02/24 encounter (Office Visit) with Balbina Woods MD Medication Sig Dispense Refill acetaminophen (TYLENOL) 500 mg tablet Take 1,000 mg by mouth. albuterol 2.5 mg /3 mL (0.083 %) nebulizer solution Take 3 mL (2.5 mg total) by nebulization every 6 (six) hours if needed for wheezing. 300 mL 1 albuterol HFA (PROAIR HFA ; PROVENTIL HFA ; VENTOLIN HFA) 90 mcg/actuation inhaler Inhale 2 puffs by mouth every 4 (four) hours if needed for wheezing. 6.7 g 3 ascorbic acid, vitamin C, 100 mg tablet,chewable Take by mouth. calcium carbonate (TUMS) 500 mg (200 mg elemental calcium) chewable tablet 500 mg. cholecalciferol (VITAMIN D-3) 1,250 mcg (50,000 unit) capsule Take 50,000 Int'l Units by mouth. cyanocobalamin (VITAMIN B-12) 100 mcg tablet 0 Refills, Maintenance, 10/04/20 9:13:00 EDT, Partial fill upon patient request if the prescription is for a schedule II opioid drug. cyclobenzaprine (FLEXERIL) 5 mg tablet Take 1 Tablet by mouth at bedtime as needed for Muscle spasms. - Oral doxycycline hyclate (VIBRA-TABS) 100 mg tablet Take 1 Tablet by mouth 2 times daily. - Oral erenumab-aooe (Aimovig Autoinjector) 70 mg/mL injection Inject 1 mL (70 mg total) under the skin every 30 (thirty) days. 1 mL 3 ergocalciferol (VITAMIN D-2) 1,250 mcg (50,000 unit) capsule Take 1 capsule (50,000 Units total) bymouth 1 (one) time per week. gabapentin (NEURONTIN) 100 mg capsule Take 2 Capsules by mouth 2 times daily. losartan (COZAAR) 100 mg tablet TAKE 1 TABLET BY MOUTH EVERY DAY metFORMIN (GLUCOPHAGE) 500 mg tablet TAKE 1 TABLET BY MOUTH TWICE A DAY WITH MEALS 180 tablet 2 methyl salicylate/menthol (EXTRA STRENGTH MUSCLE RUB TOP) Apply topically. multivitamin (MULTIPLE VITAMINS ORAL) Take by mouth. norethindrone (AYGESTIN) 5 mg tablet Take 5 mg by mouth daily. omeprazole (PriLOSEC) [address] capsule Take 1 capsule (20 mg total) by mouth 1 (one) time each day. propranoloL (INDERAL) 10 mg tablet Take 1 Tablet by mouth 3 times daily as needed (palpitations). RABEprazole (ACIPHEX) 20 mg EC tablet Take 1 tablet (20 mg total) by mouth 1 (one) time each day. rizatriptan (MAXALT-MILITARY PERSONNEL SPECIALIST) 10 mg disintegrating tablet DISSOLVE 1 TABLET ON TONGUE, THEN SWALLOW ONCEAS NEEDED. MAY REPEAT IN 2 HRS NEEDED, MAX 3 TABS silver sulfADIAZINE (SILVADENE, SSD) 1 % cream Apply small amount to the wound once daily before dressing with bandaid sodium,potassium,mag sulfates (SUPREP) 17.5-3.13-1.6 gram recon soln bowel prep kit oral solution Take 177 mL by mouth See Admin Instructions for 2 doses. vibegron (Gemtesa) 75 mg tablet tablet Take 1 tablet (75 mg total) by mouth 1 (one) time each day. [DISCONTINUED] erenumab-aooe (Aimovig Autoinjector) 70 mg/mL injection ALLERGIES: Allergies Allergen Reactions Lisinopril Other reaction(s): tremors cough Penicillin G Other reaction(s): hives Penicillins Other Reaction(s): Rash/Dermatitis PHYSICAL EXAM: Visit Vitals BP 122/78 (BP Location: Right arm, Patient Position: Sitting, BP Cuff Size: Large adult) Pulse 64 Temp 36.5 ??C (97.7 ??F) (Temporal) Wt 150 kg (330 lb) SpO2 98% BMI 58.46 kg/m?? OB Status IUD Smoking Status Former BSA 2.39 m?? APPEARANCE: Alert and in no acute distress NECK: Neck supple, no adenopathy, thyroid symmetric and of normal size HEART: RRR with normal S1 and S2, no murmurs, no gallops, no JVD appreciated LUNG: clear to auscultation ABDOMEN: Bowel sounds normoactive, no bruits, soft, non-tender, without organomegaly or palpable masses SKIN: Skin color, texture, turgor normal. No rashes or lesions. LABS/IMAGING: Admission on 03/16/2024, Discharged on 03/16/2024 Component Date Value Ref Range Status Adenovirus Detection by PCR 03/16/2024 Not Detected Not Detected Final Influenza A PCR 03/16/2024 Not Detected Not Detected Final Influenza B PCR 03/16/2024 Not Detected Not Detected Final Coronavirus 229E 03/16/2024 Not Detected Not Detected Final Coronavirus HKU1 03/16/2024 Not Detected Not Detected Final Coronavirus OC43 03/16/2024 Not Detected Not Detected Final Coronavirus NL63 03/16/2024 Not Detected Not Detected Final Parainfluenza Virus 1 03/16/2024 Not Detected Not Detected Final Parainfluenza Virus 2 03/16/2024 Not Detected Not Detected Final Parainfluenza Virus 3 03/16/2024 Not Detected Not Detected Final Parainfluenza Virus 4 03/16/2024 Not Detected Not Detected Final RSV PCR 03/16/2024 Not Detected Not Detected Final Human Metapneumovirus A and B 03/16/2024 Not Detected Not Detected Final Rhinovirus/Enterovirus 03/16/2024 Detected (A) Not Detected Final Bordetella pertussis 03/16/2024 Not Detected Not Detected Final Bordetella parapertussis 03/16/2024 Not Detected Not Detected Final Mycoplasma pneumo by PCR 03/16/2024 Not Detected Not Detected Final Chlamydia pneumoniae 03/16/2024 Not Detected Not Detected Final SARS COV-2 03/16/2024 Not Detected Not Detected Final Admission on 02/15/2024, Discharged on 02/15/2024 Component Date Value Ref Range Status Adenovirus Detection by PCR 02/15/2024 Not Detected Not Detected Final Influenza A PCR 02/15/2024 Not Detected Not Detected Final Influenza B PCR 02/15/2024 Not Detected Not Detected Final Coronavirus 229E 02/15/2024 Not Detected Not Detected Final Coronavirus HKU1 02/15/2024 Not Detected Not Detected Final Coronavirus OC43 02/15/2024 Not Detected Not Detected Final Coronavirus NL63 02/15/2024 Not Detected Not Detected Final Parainfluenza Virus 1 02/15/2024 Not Detected Not Detected Final Parainfluenza Virus 2 02/15/2024 Not Detected Not Detected Final Parainfluenza Virus 3 02/15/2024 Not Detected Not Detected Final Parainfluenza Virus 4 02/15/2024 Not Detected Not Detected Final RSV PCR 02/15/2024 Not Detected Not Detected Final Human Metapneumovirus A and B 02/15/2024 Not Detected Not Detected Final Rhinovirus/Enterovirus 02/15/2024 Not Detected Not Detected Final Bordetella pertussis 02/15/2024 Not Detected Not Detected Final Bordetella parapertussis 02/15/2024 Not Detected Not Detected Final Mycoplasma pneumo by PCR 02/15/2024 Not Detected Not Detected Final Chlamydia pneumoniae 02/15/2024 Not Detected Not Detected Final SARS COV-2 02/15/2024 Not Detected Not Detected Final Abstract on 01/17/2024 Component Date Value Ref Range Status Annual BMP Blood Test 01/10/2024 abstracted Final Cervical Cancer Screening: HPV 06/09/2021 abstracted, negative Final Pap smear 06/09/2021 abstracted, negative Final Urine Albumin Creatinine Ratio 07/08/2020 abstracted Final LDL/HDL Ratio 01/10/2024 3 0 - 4 Final Triglycerides 01/10/2024 145 0 - 150 mg/dL Final Cholesterol 01/10/2024 185 0 - 200 mg/dL Final HDL 01/10/2024 54 >=40 mg/dL Final LDL Cholesterol 01/10/2024 102 (A) 0 - 100 mg/dL Final Hemoglobin A1C 01/10/2024 5.4 <=6.5 % Final Medication and lab orders: Orders Placed This Encounter Procedures Ambulatory referral to Physical Therapy and Athletic Training Ambulatory referral to Neurology Ambulatory referral to Obstetrics / Gynecology Other orders: AMB REFERRAL TO PHYSICAL THERAPY AND ATHLETIC TRAINING AMB REFERRAL TO NEUROLOGY AMB REFERRAL TO OB-HUMAN RESOURCES SERVICES SPECIALIST IMPRESSION: 1. Scabies 2. Chronic midline low back pain without sciatica 3. Nonintractable headache, unspecified chronicity pattern, unspecified headache type 4. Chronic migraine with aura without status migrainosus, not intractable 5. Adult general medical examination PLAN: Rash/scabies--permethrin cream sent to pharmacy Hypertension, continue losartan 100 mg daily, blood pressure stable, Morbid obesity--patient underwent bariatric surgery, weight loss discussed. Following the surgeon, on metformin 500 mg twice daily, last A1c was 5.4 Vitamin B12 deficiency--we will continue supplement Bilateral knee pain--follow up to orthopedic Follow-up in 5 months or sooner as needed Balbina Woods MD on 06/02/2024 at 10:42 AM EST documented in this encounter Plan of Treatment Upcoming Encounters Date Type Department Care Team (Late st Contact Info) Description 07/17/2024 8:00 AM EDT Consult [facility] [place] [address] [facility] [address] [place] [phone] Lisa Larios MD 175 [facility] [address] [place] [phone] 07/28/2024 8:00 AM EDT Office Visit Bariatric Surgery - [place] [address] [facility] [address] [place] [phone] Lanre Sandoval MD 175 [facility] [address] [place] [address] 08/07/2024 8:00 AM EDT Nutrition Bariatric Surgery - [place] [address] [facility] [address] [place] [phone] 175 [facility] [address] [place], [place] [id number] 11/06/2024 8:45 AM EDT Office Visit Internal Medicine - [place] [address] [facility] [address] [place] [phone] Balbina Woods MD [address] [phone] 11/27/2024 8:15 AM EDT Office Visit Pulmonolgy - [place] [address] [phone] Chuyita Peoples MD [address] [address] Scheduled Referrals Name Type Priority Associated Diagnoses Order Schedule Ambulatory referral to Physical Therapy and Athletic Training Outpatient Referral Routine Chronic midline low back pain without sciatica 1 Occurrences starting 06/02/2024 until 06/02/2025 Ambulatory referral to Neurology Outpatient Referral Routine Nonintractable headache, unspecified chronicity pattern, unspecified headache type 1 Occurrences starting 06/02/2024 until 06/02/2025 Ambulatory referral to Obstetrics / Gynecology Outpatient Referral Routine Adult general medical examination 1 Occurrences starting 06/02/2024 until 06/02/2025 documented as of this encounter Visit Diagnoses Diagnosis Scabies- Primary Chronic midline low back pain without sciatica Nonintractable headache, unspecified chronicity pattern, unspecified headache type Chronic migraine with aura without status migrainosus, not intractable Adult general medical examination Unspecified general medical examination documented in this encounter Discontinued Medications Medication Sig Discontinue Reason Start Date End Da te erenumab-aooe (Aimovig Autoinjector) 70 mg/mL injection Reorder 04/24/2019 06/02/2024 documented as of this encounter Care Teams Vice President Underwriting Relationship Specialty Start Date End Date Balbina Woods MD [address] [phone] PCP - General Internal Medicine 02/14/17 documented as of this encounter
--- OUTSIDE RECORDS SUMMARY | 2024-06-12 09:14 | XMS_ITS | Encounter Summary ---
Author Organization [facility] Address [address] [place] [address] Care Team Providers Care Inspector Raw Quartz Name Role Phone Balbina Woods MD Primary Care Provider [phone] Josue Fernandes MD Unavailable [phone] Encounter Details Date Type Department Care Team Description 03/06/2019 Release of Information Medical Records [address] [place] [id number] Abstract, Provider Social History Tobacco Use Types Packs/Day Years Used Date Smoking Tobacco: Former Smokeless Tobacco: Never Alcohol Use Standard Drinks/Week Comments Yes 0 (1 standard drink = 0.6 oz pur e alcohol) Sex Assigned at Date Recorded Not on file Job Start Date Occupation Industry Not on file Not on file Not on file documented as of this encounter Plan of Treatment Not on file documented as of this encounter Visit Diagnoses Not on filedocumented in this encounter Care Teams Inspector Raw Quartz Relationship Specialty Start Date End Date Balbina Woods MD PCP - General Internal Medicine 02/14/17 Josue Fernandes MD [address] [place] [address] [address] [place] [address] Specialist Cardiovascular Disease 08/15/22 documented as of this encounter
--- OUTSIDE RECORDS SUMMARY | 2024-06-12 09:14 | XMS_ITS | Encounter Summary ---
Author Organization [facility] Address [address] [place] [address] Care Team Providers Care Chicle Grinder Feeder Name Role Phone Balbian Woods MD Primary Care Provider [phone] Reason for Visit * Reason Comments Obesity Encounter Details Date Type Department Care Team ([facility] st Contact Info) Description 06/05/2024 8:00 AM EST Nutrition Bariatric Surgery - [place] [address] [phone] Raeann Brooks, EDDIE [address] [address] Class 3 severe obesity with body mass index (BMI) of 50.0 to 59.9 in adult, unspecified obesity type, unspecified whether serious comorbidity present (CMS/HCC) (Primary Dx) Social History Tobacco Use Types Packs/Day Years [...] Sign Reading Time Taken Comments Blood Pressure - - Pulse - - Temperature - - Respiratory Rate - - Oxygen Saturation - - Inhaled Oxygen Concentration - - Weight 150 kg (331 lb) 06/05/2024 8:00 AM EST Height - - Body Mass Index 58.63 04/21/2024 9:06 AM EST documented in this encounter Progress Notes * Raeann Brooks RD - 06/05/2024 8:00 AM EST Images from the original note were not included. Patient-created Goals: Protein shakes- aim for 30g of protein and less than 5g of added sugar (ensure max protein, fairlife, premeir) Protein goal: 60-80g daily Use protein handout to learn protein content of different foods Fluid goal: 64 ounces daily, slowly sip Omit hot chocolate and soda Continue general multivitamin Sustain physical activity routine as able * Raeann Brooks RD - 06/05/2024 8:00 AM EST NUTRITION FOLLOW-UP NOTE: Patient Name: Karen Jones Date of : 1975 Date of Service: 06/05/2024 SURGEON: Dr. Larne Sandoval DESIRED SURGERY: s/p sleeve (2017?) possible revision to NORA or bypass Pt presents with father Utilizes soft food; lactose intolerant Per surgeon pt needs to loose 30 lb before revisional surgery Insurance denied zepbound Last apt Sent message to Dr. Sandoval and surgical PA regarding this and current dietary habits. CHIEF COMPLAINT: Obesity HISTORY: Karen Jones is a 49 y.o. female who presents for nutrition visit for preop bariatric surgery. This is their 4 visit. Ht Readings from Last 1 Encounters: 04/21/24 1.6 m (63 ) Wt Readings from Last 13 Encounters: 06/05/24 150 kg (331 lb) 06/02/24 150 kg (330 lb) 04/21/24 148 kg (327 lb) 04/03/24 147 kg (324 lb) 03/16/24 147 kg (323 lb) 03/13/24 147 kg (323 lb) 02/28/24 146 kg (322 lb) 02/27/24 147 kg (323 lb) 02/15/24 142 kg (312 lb) 01/03/24 151 kg (332 lb) 12/24/23 149 kg (328 lb 3.2 oz) 11/22/23 147 kg (323 lb) 10/15/23 150 kg (330 lb 1.3 oz) Body mass index is 58.63 kg/m??. Wt at initial: 330 Wt change since initial: +1 EBW = current - wt at BMI of 25: 331-140=91 Challenges: addicted to chocolate Changes since last visit: trying to eat more vegetables, new diabetes education class EATING HABITS/DIET RECALL: Breakfast: bulgarian muffin with ham and cheese and fruit cup Lunch: rice veggies meat Dinner: MOW meals Snacks: chocolate chip cookies Beverages: milk, hot chocolate, soda here and there MVI: general MVI Dines out: did not discuss Exercise: spine and knee pain, upper body chair workouts at home and daycare ALLERGIES: Allergies Allergen Reactions Lisinopril Other reaction(s): tremors cough Penicillin G Other reaction(s): hives Penicillins Other Reaction(s): Rash/Dermatitis Nutrition diagnosis: Class IV obesity related to predicted inadequate protein intakeas evidenced byBMI of 58.6 Patient-created Goals: Protein shakes- aim for 30g of protein and less than 5g of added sugar (ensure max protein, fairlife, premeir) Protein goal: 60-80g daily Use protein handout to learn protein content of different foods Fluid goal: 64 ounces daily, slowly sip Omit hot chocolate and soda Continue general multivitamin Sustain physical activity routine as able Literature Provided: Protein handout, Pt centered goals, and RD contact information Interventions: Discuss importance of eating at least 3 meals per day and the impact on metabolism, Discussed the need to have protein with each meal and snack, Discussed the importance of drinking enough water, Post op bariatric surgery nutrition troubleshooting, and Discussed benefits of physical activity Nutrition assessment: Pt is 49 y.o. 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), Gastroesophageal reflux disease (12/26/2015), Hearing loss (10/03/2011), Hereditary essential tremor (08/21/2013), Hiatal hernia (05/17/2014), History of bariatric surgery (03/17/2018), Hypertension (10/04/2016), Incomplete emptyingof bladder (08/20/2013), Internal hemorrhoids (12/27/2016), Learning disability (10/30/2011), Migraine, unspecified, not intractable, without status migrainosus (12/10/2017), Morbid obesity with BMI of 50.0-59.9, adult ([facility]) (12/21/2016), Onychomycosis (12/28/2013), Pernicious anemia (10/03/2011), Polyc ystic ovaries (08/20/2013), Snores (10/06/2012), Urinary incontinence (05/31/2017), and Vitamin D deficiency (03/18/2015). Class IV obesity Stage of change/Barriers to understanding: Pt is motivated to make changes to diet and lifestyle nobarriers to understanding Concerns regarding considerations for bariatric surgery: Patient voiced none and RD has none at this time Monitoring/Evaluation: monitor weight, monitor progress toward nutrition goals, and monitor compliance with program overall Patient nutritionally ready for surgery: Pt has completed labs, support group and physical with primary care. Has not completed psych clearance. Pt made aware if they use their own provider the provider should have a title of a psychiatrist. Will leave dietary habits and post op concerns up to surgeon and surgical PA. RD to see patient for follow-up nutrition visit in 2 months Visit Time: The total time of this visit was 30 minutes of which we spent 30 minutes (>50% of the time spent) in direct [id number] consultation for counseling, reviewing medical record and/or coordinating the plan as described above. Raeann Brooks RD NUTRITION SERVICES Cosigned by Lanre Sandoval MD at 06/08/2024 11:22 AM EST documented in this encounter Plan of Treatment Upcoming Encounters Date Type Department Care Team (Late st Contact Info) Description 07/17/2024 8:00 AM EDT Consult [facility] - [place] [address] [place] [phone] Lisa Larios MD [address] [facility] 150 [place] [phone] 07/28/2024 8:00 AM EDT Office Visit Bariatric Surgery - [place] [address] [facility] [address] [place] [phone] Lanre Sandoval MD 175 [facility] 120 [place], [place] [id number] 08/07/2024 8:00 AM EDT Nutrition Bariatric Surgery - [place] 175 [facility] 120 [place] [phone] Raeann Brooks, EDDIE [address] [facility] 120 [place] [address] 11/06/2024 8:45 AM EDT Office Visit Internal Medicine - [place] [address] [facility] [address] [facility] 200 [place] [phone] Balbina Woods MD 175 [facility] 200 [place] [phone] 11/27/2024 8:15 AM EDT Office Visit Pulmonolgy - [place] [address] [facility] [address] [place] [phone] Chuyita Peoples MD 175 [facility] 200 [place] [address] documented as of this encounter Visit Diagnoses Diagnosis Class 3 severe obesity with body mass index (BMI) of 50.0 to 59.9 in adult, unspecified obesity type, unspecified whether serious comorbidity present (CMS/HCC)- Primary documented in this encounter Care Teams Chicle Grinder Feeder Relationship Specialty Start Date End Date Balbina Woods MD [address] [phone] PCP - General Internal Medicine 02/14/17 documented as of this encounter
--- OUTSIDE RECORDS SUMMARY | 2024-06-12 09:14 | XMS_ITS | Encounter Summary ---
Author Organization [facility] Address [address] [place] [address] Care Team Providers Care Surgical Coder Name Role Phone Balbina Woods MD Primary Care Provider [phone] Josue Fernandes MD Unavailable [phone] Encounter Details Date Type Department Care Team Description 02/03/2021 Scaffolding Helper Report Medical Records [address] [place] [address] Todd Doty MD Social History Tobacco Use Types Packs/Day [...] on filedocumented in this encounter Care Teams Surgical Coder Relationship Specialty Start Date End Date Balbina Woods MD PCP - General Internal Medicine 02/14/17 Josue Fernandes MD 300 [facility] 154 [place] [address] Specialist Cardiovascular Disease 08/15/22 documented as of this encounter
--- OUTSIDE RECORDS SUMMARY | 2024-06-12 09:14 | XMS_ITS | Encounter Summary ---
Author Organization [facility] Address [address] [place] [address] Care Team Providers Care Case Worker Name Role Phone Balbina Woods MD Primary Care Provider [phone]- [phone] Josue Fernandes MD Unavailable [phone] Encounter Details Date Type Department Care Team Description 06/14/2023 Chiropractic Neurologist Report Medical Records [address] [place] [address] Alonso Mcmillan MD Social History Tobacco Use Types Packs/Day [...] on filedocumented in this encounter Care Teams Case Worker Relationship Specialty Start Date End Date Balbina Woods MD PCP - General Internal Medicine 02/14/17 Josue Fernandes MD 300 [facility] 154 [place] [address] Specialist Cardiovascular Disease 08/15/22 documented as of this encounter
--- OUTSIDE RECORDS SUMMARY | 2024-06-12 09:14 | XMS_ITS | Encounter Summary ---
Author Organization [facility] Address [address] [place] [address] Care Team Providers Care Lining Cutter Name Role Phone Balbina Woods MD Primary Care Provider [phone] Josue Fernandes MD Unavailable [phone] Encounter Details Date Type Department Care Team Description 11/06/2022 SCAN Medical Records [address] [place] [address] [facility] Social History Tobacco Use Types Packs/Day Years [...] on filedocumented in this encounter Care Teams Lining Cutter Relationship Specialty Start Date End Date Balbina Woods MD PCP - General Internal Medicine 02/14/17 Josue Fernandes MD 300 [facility] [address] [place] [address] Specialist Cardiovascular Disease 08/15/22 documented as of this encounter
--- OUTSIDE RECORDS SUMMARY | 2024-06-12 09:14 | XMS_ITS | Encounter Summary ---
Author Organization [facility] Address [address] [place] [address] Care Team Providers Care Bench Jeweler Name Role Phone Balbina Woods MD Primary Care Provider [phone] Josue Fernandes MD Unavailable [phone] Encounter Details Date Type Department Care Team Description 11/06/2019 Medical Record Technician Report Medical Records [address] [place] [address] Michelle Dewitt NP Social History Tobacco Use Types Packs/Day Years [...] on filedocumented in this encounter Care Teams Bench Jeweler Relationship Specialty Start Date End Date Balbina Woods MD PCP - General Internal Medicine 02/14/17 Josue Fernandes MD 300 [facility] 154 [place], [place] [phone] Specialist Cardiovascular Disease 08/15/22 documented as of this encounter
--- OUTSIDE RECORDS SUMMARY | 2024-06-12 09:14 | XMS_ITS | Encounter Summary ---
Author Organization [facility] Address [address] [place] [address] Care Team Providers Care Ceramics Test Engineer Name Role Phone Balbina Woods MD Primary Care Provider [phone]- [phone] Josue Fernandes MD Unavailable [phone] Encounter Details Date Type Department Care Team Description 03/18/2023 Telephone Internal Medicine - [place] 175 [facility], [address] [place] [address] Balbina Woods MD [address] [place] [phone] Social History Tobacco Use Types Packs/Day Years [...] on filedocumented in this encounter Care Teams Ceramics Test Engineer Relationship Specialty Start Date End Date Balbina Woods MD PCP - General Internal Medicine 02/14/17 Josue Fernandes MD [address] [place], [place] [phone] Specialist Cardiovascular Disease 08/15/22 documented as of this encounter
--- OUTSIDE RECORDS SUMMARY | 2024-06-12 09:14 | XMS_ITS | Encounter Summary ---
Author Organization [facility] Address [address] [place] [address] Care Team Providers Care Master Control Technician Name Role Phone Balbina Woods MD Primary Care Provider [phone] Joseu Fernandes MD Unavailable [phone] Reason for Visit * Reason Comments E-prescribe Rx Request Encounter Details Date Type Department Care Team Description 01/22/2021 Refill Internal Medicine - [address], [address] [place] [address] Balbina Woods MD [address] [place] [phone] E-prescribe Rx Request Social History Tobacco [...] encounter Miscellaneous Notes * Telephone Encounter - Daniela SCHAFFER - 01/23/2021 1:16 PM EDT No visits with results within 3 Month(s) from this visit. Latest known visit with results is: Appointment on 07/08/2020 Component Date Value ??? CREATININE, RANDOM URINE 07/08/2020 125 ??? MICROALBUMIN, RANDOM 07/08/2020 13.6 ??? MICROALB/CRE RATIO RANDOM 07/08/2020 10.8 * Telephone Encounter - Lisa Beni - 01/23/2021 11:56 AM EDT [place]ILIA 11/04/2020 NOV 02/24/2021 documented in this encounter Plan of Treatment Not on file documented as of this encounter Visit Diagnoses Not on filedocumented in this encounter Care Teams Master Control Technician Relationship Specialty Start Date End Date Balbina Woods MD PCP - General Internal Medicine 02/14/17 Josue Fernandes MD [address] [place] [address] Specialist Cardiovascular Disease 08/15/22 documented as of this encounter
--- OUTSIDE RECORDS SUMMARY | 2024-06-12 09:14 | XMS_ITS | Encounter Summary ---
Author Organization [facility] Address [address] [place] [address] Care Team Providers Care Tool Turret Lathe Set Up Operator Name Role Phone Balbina Woods MD Primary Care Provider [phone]- [phone] Josue Fernandes MD Unavailable [phone] Encounter Details Date Type Department Care Team Description 06/04/2023 Orders Only Medical Records [address] [place] [address] Sky Snow MD 175 [facility] 120 [place] [address] Social History Tobacco Use Types Packs/Day Years [...] on file documented as of this encounter Procedures Procedure Name Priority Date/Time Associated Diagnosis Comments OUTSIDE PATHOLOGY Routine 05/30/2023 documented in this encounter Results * OUTSIDE PATHOLOGY (05/30/2023) Sky Snow MD OUTSIDE LAB documented in this encounter Visit Diagnoses Not on filedocumented in this encounter Care Teams Tool Turret Lathe Set Up Operator Relationship Specialty Start Date End Date Balbina Woods MD PCP - General Internal Medicine 02/14/17 Josue Fernandes MD 300 [facility] [address] [place] [address] Specialist Cardiovascular Disease 08/15/22 documented as of this encounter
--- OUTSIDE RECORDS SUMMARY | 2024-06-12 09:14 | XMS_ITS | Encounter Summary ---
Author Organization [facility] Address [address] [place] [address] Care Team Providers Care Distributed Generation Project Manager Name Role Phone Balbina Woods MD Primary Care Provider [phone]- [phone] Jouse Fernandes MD Unavailable [phone] Encounter Details Date Type Department Care Team Description 05/20/2019 Telephone Internal Medicine - [address], [address] [place] [address] Balbina Woods MD [address] [place] [phone] Social History Tobacco Use Types Packs/Day Years Used Date Smoking Tobacco: Former Smokeless Tobacco: Never Alcohol Use Standard Drinks/Week Comments Yes 0 (1 standard drink = 0.6 oz pur e alcohol) Sex Assigned at Date Recorded Not on file Job Start Date Occupation Industry Not on file Not on file Not on file documented as of this encounter Miscellaneous Notes * Telephone Encounter - Ileana Ochoa M.A. - 05/20/2019 9:07 AM EST ----- Message from Balbina Woods MD sent at 05/19/2019 9:22 PM EST ----- X ray shoulder normal documented in this encounter Plan of Treatment Not on file documented as of this encounter Visit Diagnoses Not on filedocumented in this encounter Care Teams Distributed Generation Project Manager Relationship Specialty Start Date End Date Balbina Woods MD PCP - General Internal Medicine 02/14/17 Josue Fernandes MD 300 [facility] 154 [place] [address] Specialist Cardiovascular Disease 08/15/22 documented as of this encounter
--- OUTSIDE RECORDS SUMMARY | 2024-06-12 09:14 | XMS_ITS | Encounter Summary ---
Author Organization [facility] Address [address] [place] [address] Care Team Providers Care Office Helper Clerical Name Role Phone Balbina Woods MD Primary Care Provider [phone] Josue Fernandes MD Unavailable [phone] Reason for Visit * Reason Comments E-prescribe Rx Request Encounter Details Date Type Department Care Team Description 04/05/2019 Refill Internal Medicine - [address], [address] [place] [address] Balbina Woods MD [address] [place] [phone] E-prescribe Rx Request Social History Tobacco [...] encounter Miscellaneous Notes * Telephone Encounter - Kiara Ochoa M.A. - 04/06/2019 3:49 PM EST Refill sent to pcp * Telephone Encounter - Lakesha Maurer - 04/06/2019 1:01 PM EST Patient would like script to be: E-PRESCRIBED/FAXED TO PHARMACY WHEN WAS THE PATIENT'S LAST APPOINTMENT IN ADULT MEDICINE? 02/17/19 WHEN WAS THE LAST TIME THE PATIENT SAW THEIR PCP? Same as above Does patient have an upcoming appointment? Yes 07/03/19 (THE MEDICATION REQUESTED IS ON THE MED LIST ABOVE) All of the medications requested were on the CURRENT MEDS list Did you check the Pharmacy information above?: YES Patient wants: 90 -day supply Is this a mail order prescription request ? NO If the refill is from a FAXED refill request what is the RX # listed on the fax? N/A Patients current insurance carrier is: Payor: [employer] FFS / Plan: [employer] / Product Type: MEDICAID RISK documented in this encounter Plan of Treatment Not on file documented as of this encounter Visit Diagnoses Not on filedocumented in this encounter Care Teams Office Helper Clerical Relationship Specialty Start Date End Date Balbina Woods MD PCP - General Internal Medicine 02/14/17 Josue Fernandes MD [address] [place] [address] Specialist Cardiovascular Disease 08/15/22 documented as of this encounter
--- OUTSIDE RECORDS SUMMARY | 2024-06-12 09:14 | XMS_ITS | Encounter Summary ---
Author Organization [facility] Address [address] [place] [address] Care Team Providers Care Engineering Illustrator Name Role Phone Balbina Woods MD Primary Care Provider [phone]- [phone] Josue Fernandes MD Unavailable [phone] Encounter Details Date Type Department Care Team Description 11/29/2020 Orders Only Rheumatology - [address] [address] Mookie Mariscal PA Chronic right shoulder pain Social History Tobacco Use Types Packs/Day Years [...] have Coronavirus / COVID-19? No / Unsure 11/07/2020 1:40 PM EDT documented as of this encounter Plan of Treatment Not on file documented as of this encounter Procedures Procedure Name Priority Date/Time Associated Diagnosis Comments MRI OF ARM JOINT / UPPER EXTREMITY JOINT NO CONTRAST Routine 11/29/2020 Chronic right shoulder pain documented in this encounter Results * MRI OF ARM JOINT / UPPER EXTREMITY JOINT NO CONTRAST (11/29/2020) Mookie ARANA MRI [facility] [address] [place] [address] documented in this encounter Visit Diagnoses Diagnosis Chronic right shoulder pain Pain in joint, shoulder region documented in this encounter Care Teams Engineering Illustrator Relationship Specialty Start Date End Date Balbina Woods MD PCP - General Internal Medicine 02/14/17 Josue Fernandes MD [address] [place] [address] Specialist Cardiovascular Disease 08/15/22 documented as of this encounter
--- OUTSIDE RECORDS SUMMARY | 2024-06-12 09:14 | XMS_ITS | Encounter Summary ---
Author Organization [facility] Address [address] [place] [address] Care Team Providers Care Second Time Worker Name Role Phone Balbina Woods MD Primary Care Provider [phone] Josue Fernandes MD Unavailable [phone] Encounter Details Date Type Department Care Team Description 03/18/2019 Blasting Gang Miner Report Medical Records [address] [place] [address] Abstract, Provider Social History Tobacco Use Types [...] on filedocumented in this encounter Care Teams Second Time Worker Relationship Specialty Start Date End Date Balbina Woods MD PCP - General Internal Medicine 02/14/17 Josue Fernandes MD [address] [place] [address] [address] [place] [address] Specialist Cardiovascular Disease 08/15/22 documented as of this encounter
--- OUTSIDE RECORDS SUMMARY | 2024-06-12 09:14 | XMS_ITS | Encounter Summary ---
Author Organization [facility] Address [address] [place] [address] Care Team Providers Care Publicity Consultant Name Role Phone Balbina Woods MD Primary Care Provider [phone]- [phone] Josue Fernandes MD Unavailable [phone] Encounter Details Date Type Department Care Team Description 06/07/2023 SCAN [facility] 175 [facility] [address] [place] [phone] Michelle Hawkins MD 175 [facility] [address] [place], [place] [phone] Social History Tobacco Use Types Packs/Day Years [...] on filedocumented in this encounter Care Teams Publicity Consultant Relationship Specialty Start Date End Date Balbina Woods MD PCP - General Internal Medicine 02/14/17 Josue Fernandes MD 300 [facility] [address] [place] [address] Specialist Cardiovascular Disease 08/15/22 documented as of this encounter
--- OUTSIDE RECORDS SUMMARY | 2024-06-12 09:14 | XMS_ITS | Encounter Summary ---
Author Organization [facility] Address [address] [place] [address] Care Team Providers Care Top Dyeing Machine Loader Name Role Phone Balbina Woods MD Primary Care Provider [phone] Josue Fernandes MD Unavailable [phone] Encounter Details Date Type Department Care Team Description 03/08/2023 Roller Shop Supervisor Report Medical Records [address] [place] [address] Dragan Dugan MD Social History Tobacco Use Types Packs/Day [...] on filedocumented in this encounter Care Teams Top Dyeing Machine Loader Relationship Specialty Start Date End Date Balbina Woods MD PCP - General Internal Medicine 02/14/17 Josue Fernandes MD 300 [facility] [address] [place] [address] Specialist Cardiovascular Disease 08/15/22 documented as of this encounter
--- OUTSIDE RECORDS SUMMARY | 2024-06-12 09:14 | XMS_ITS | Encounter Summary ---
Author Organization [facility] Address [address] [place] [address] Care Team Providers Care Sales Communications Manager Name Role Phone Balbina Woods MD Primary Care Provider [phone] Josue Fernandes MD Unavailable [phone] Encounter Details Date Type Department Care Team Description 02/19/2023 Orders Only Medical Records [address] [place] [address] Rowdy Voss Social History Tobacco Use Types Packs/Day Years [...] suspected to have Coronavirus/COVID-19? No / Unsure 02/01/2023 12:48 PM EDT documented as of this encounter Plan of Treatment Not on file documented as of this encounter Procedures Procedure Name Priority Date/Time Associated Diagnosis Comments OUTSIDE MAMMO Routine 02/19/2023 documented in this encounter Results * OUTSIDE MAMMO (02/19/2023) Rowdy Voss RADIOLOGY documented in this encounter Visit Diagnoses Not on filedocumented in this encounter Care Teams Sales Communications Manager Relationship Specialty Start Date End Date Balbina Woods MD PCP - General Internal Medicine 02/14/17 Josue Fernandes MD [address] [place] [address] Specialist Cardiovascular Disease 08/15/22 documented as of this encounter
--- OUTSIDE RECORDS SUMMARY | 2024-06-12 09:14 | XMS_ITS | Encounter Summary ---
Author Organization [facility] Address [address] [place] [address] Care Team Providers Care Service Center Coordinator Name Role Phone Balbina Woods MD Primary Care Provider [phone] Josue Fernandes MD Unavailable [phone] Encounter Details Date Type Department Care Team Description 01/27/2019 Telephone Internal Medicine - [place] 175 [facility], [address] [place] [address] Balbina Woods MD [address] [place] [phone] Social History Tobacco Use Types Packs/Day [...] on filedocumented in this encounter Care Teams Service Center Coordinator Relationship Specialty Start Date End Date Balbina Woods MD PCP - General Internal Medicine 02/14/17 Josue Fernandes MD 300 [facility] [address] [place], [place] [phone] Specialist Cardiovascular Disease 08/15/22 documented as of this encounter
--- OUTSIDE RECORDS SUMMARY | 2024-06-12 09:14 | XMS_ITS | Encounter Summary ---
Author Organization [facility] Address [address] [place] [address] Care Team Providers Care Top Precipitator Operator Helper Name Role Phone Blabina Woods MD Primary Care Provider [phone] Josue Fernandes MD Unavailable [phone] Reason for Visit * Reason Onset Date Comments Medication 10/22/2022 Encounter Details Date Type Department Care Team Description 10/22/2022 Refill Gastroenterology - [place] 175 [facility] 200 [place] [phone] Sky Snow MD 175 [facility] 120 [place], [place] [id number] Medication Social History Tobacco Use Types Packs/Day Years Used Date Smoking Tobacco: Former Smokeless Tobacco: Never Comments:in Alcohol Use Standard Drinks/Week Comments Yes 0 [...] suspected to have Coronavirus/COVID-19? No / Unsure 10/02/2022 8:37 AM EDT documented as of this encounter Plan of Treatment Not on file documented as of this encounter Visit Diagnoses Not on filedocumented in this encounter Care Teams Top Precipitator Operator Helper Relationship Specialty Start Date End Date Balbina Woods MD PCP - General Internal Medicine 02/14/17 Josue Fernandes MD 300 [facility] [address] [place] [address] Specialist Cardiovascular Disease 08/15/22 documented as of this encounter
--- OUTSIDE RECORDS SUMMARY | 2024-06-12 09:14 | XMS_ITS | Encounter Summary ---
Author Organization [facility] Address [address] [place] [address] Care Team Providers Care Folder Stitcher Operator Name Role Phone Balbina Woods MD Primary Care Provider [phone] Josue Fernandes MD Unavailable [phone] Encounter Details Date Type Department Care Team Description 05/20/2019 Telephone Internal Medicine - [address], [address] [place] [address] Balbina Woods MD [address] [place] [phone] Social History Tobacco Use Types Packs/Day [...] Encounter - Ileana Ochoa M.A. - 05/20/2019 9:06 AM EST ----- Message from Balbina Woods MD sent at 05/19/2019 2:26 PM EST ----- Knee x-ray showing moderate arthritis documented in this encounter Plan of Treatment Not on file documented as of this encounter Visit Diagnoses Not on filedocumented in this encounter Care Teams Folder Stitcher Operator Relationship Specialty Start Date End Date Balbina Woods MD PCP - General Internal Medicine 02/14/17 Josue Fernandes MD [address] [place] [address] Specialist Cardiovascular Disease 08/15/22 documented as of this encounter
--- OUTSIDE RECORDS SUMMARY | 2024-06-12 09:15 | XMS_ITS | Continuity of Care Document ---
Author Organization [facility] Address [address] [place] [id number] Care Team Providers Care Gut Cleaner Name Role Phone Chuck GALLO, Balbina Chappell Primary Care Physician [id number] Date[facility]s): 06/04/24 - 06/11/24 [facility] [address] [place] [address]- Attending Physician: Sudhakar Ellis MD Referring Physician: Chuck GALLO, Balbina Chappell Encounter Type: Office Visit Allergies, Adverse Reactions, Alerts Substance Criticality Severity Reaction Reaction Severity Status penicillin hives Active lisinopril 1 tremors Active 1cough Medications Aimovig SureClick 1, Subcutaneous Injection, Every 28 days, 0 Refills, Maintenance, 02/25/19 2:56:19 PM EST Start Date: 02/25/19 Status: Ordered Repeat number: 1 Bilateral Juxtafit knee-high garments. Bilateral Juxtafit knee-high garments., See Instructions, # 1 kit, Refills 1, Tot. Refills 1, Maintenance, Use during the day as tolerated. Can use nighttime as well. Dx: LE lymphedema, 11/15/22 10:16:00 AM EDT, Compound Start Date: 11/15/22 Status: Ordered Quantity: 1.0 Unit: kit Repeat number: 2 eflornithine 13.9% topical cream 1 application, Topically, 2 times a day, # 30 Gm, 3 Refills, Maintenance, 05/08/21 9:10:00 PM EST, Cream, [id number], Partial fill upon patient request if the prescription is for a schedule IIopioid drug., 1 application Topically 2 times a day, 160, cm, 04/28/21 9:51:00 EST, Height Start Date: 05/08/21 Status: Ordered Quantity: 30.0 Unit: g Repeat number: 4 finasteride 5 mg oral tablet 0.5 tablet, By Mouth, Daily, INSTR:PLEASE SCHEDULE AN APPOINTMENT, # 15 tablet, 0 Refills, Maintenance, 09/19/20 8:17:00 AM EDT, [id number], 160, cm, 10/02/19 17:01:00 EDT, Height, 141.6, kg, 03/03/19 12:15:00 EST, Dry Weight Start Date: 09/19/20 Status: Ordered Quantity: 15.0 Unit: tablet Repeat number: 1 finasteride 5 mg oral tablet 1 tablet = 5 mg, By Mouth, Daily, # 90 tablet, 3 Refills, Maintenance, 10/14/20 11:41:00 AM EDT, Tablet, [id number], Partial fill upon patient request if the prescription is for a schedule II opioid drug., 10/05/20, 160, cm, 10/04/20 9:09:00 EDT, Height, 141.6, kg, 03/03/19 12:15:00 EST, Dry Weight Start Date: 10/14/20 Status: Ordered Quantity: 90.0 Unit: tablet Repeat number: 4 gabapentin 100 mg oral capsule 100 mg, 1, capsule, By Mouth, 3 times a day, Refills 0, Maintenance, 10/04/20 9:13:00 AM EDT, Partial fill upon patient request if the prescription is for a schedule II opioid drug. Start Date: 10/04/20 Status: Ordered Repeat number: 1 gabapentin 300 mg oral capsule 300 mg, 1, capsule, By Mouth, 3 times a day, Refills 0, Maintenance, 10/04/20 9:13:00 AM EDT, Partial fill upon patient request if the prescription is for a schedule II opioid drug. Start Date: 10/04/20 Status: Ordered Repeat number: 1 losartan 100 mg oral tablet 1 tablet = 100 mg, By Mouth, Daily, 0 Refills, Maintenance, 10/04/20 9:14:00 AM EDT, Partial fill upon patient request if the prescription is for a schedule II opioid drug. Start Date: 10/04/20 Status: Ordered Repeat number: 1 Metformin 500 mg 0.5 tab= 250 mg, By Mouth, 2 times a day, 0 Refills, Maintenance, 02/25/19 2:51:31 PM EST Start Date: 02/25/19 Status: Ordered Repeat number: 1 metFORMIN 500 mg/5 mL oral solution 5 mL = 500 mg, By Mouth, 2 times a day, # 900 mL, 0 Refills, Maintenance, 10/05/20 11:41:00 AM EDT, Solution, [id number], Partial fill upon patient request if the prescription is for a schedule II opioid drug., 160, cm, 10/04/20 9:09:00 EDT, Height, 141.6, kg, 03/03/19 12:15:00 EST, Dry Weight Start Date: 10/05/20 Status: Ordered Quantity: 900.0 Unit: mL Repeat number: 1 norethindrone 5 mg oral tablet 5 mg, 1, tablet, By Mouth, Daily, # 90 tablet, Refills 4, Tot. Refills 4, Maintenance, 05/08/21 9:06:00 PM EST, Route to Pharmacy Electronically, [id number], Partial fill upon patient request if the prescription is for a schedule II opioid drug., 160, cm, 04/28/21 9:51:00 EST, Height Start Date: 05/08/21 Status: Ordered Quantity: 90.0 Unit: tablet Repeat number: 5 norethindrone 5 mg oral tablet 5 mg, 1, tablet, By Mouth, Daily, # 90 tablet, Refills 4, Tot. Refills 4, Maintenance, 05/08/21 9:11:00 PM EST, Route to Pharmacy Electronically, [id number], Partial fill upon patient request if the prescription is for a schedule II opioid drug., 160, cm, 04/28/21 9:51:00 EST, Height Start Date: 05/08/21 Status: Ordered Quantity: 90.0 Unit: tablet Repeat number: 5 omeprazole 2 mg/mL oral suspension 20 mL = 40 mg, By Mouth, 2 times a day, # 560 mL, 0 Refills, Maintenance, 03/04/19 2:44:14 PM EST, Suspension, [id number] Start Date: 03/04/19 Stop Date: 03/18/19 Status: Ordered Quantity: 560.0 Unit: mL Repeat number: 1 omeprazole 40 mg oral enteric coated capsule 1 capsule = 40 mg, By Mouth, 2 times a day, # 28 capsule, 0 Refills, Maintenance, 03/04/19 9:08:22 AM EST, Suspension, [id number] Start Date: 03/04/19 Stop Date: 03/18/19 Status: Ordered Quantity: 28.0 Unit: capsule Repeat number: 1 rizatriptan 10 mg oral tablet 1 tablet = 10 mg, Sublingual, Daily, PRN as needed for migraine headache, 0 Refills, Maintenance, 02/25/19 2:53:57 PM EST Start Date: 02/25/19 Status: Ordered Repeat number: 1 Tums 500 = 500 mg, Daily, 0 Refills, Maintenance, 10/04/20 9:13:00 AM EDT, Partial fill upon patient request if the prescription is for a schedule II opioid drug. Start Date: 10/04/20 Status: Ordered Repeat number: 1 Tylenol Caplet Extra Strength = 1,000 mg, By Mouth, Every 6 hours, PRN Pain , Moderate, 0 Refills, Maintenance, 02/25/19 2:52:23 PM EST Start Date: 02/25/19 Status: Ordered Repeat number: 1 Vitamin B12 0 Refills, Maintenance, 10/04/20 9:13:00 AM EDT, Partial fill upon patient request if the prescription is for a schedule II opioid drug. Start Date: 10/04/20 Status: Ordered Repeat number: 1 Vitamin C By Mouth, Daily, 0 Refills, Maintenance, 10/04/20 9:13:00 AM EDT, Partial fill upon patient request if the prescription is for a schedule II opioid drug. Start Date: 10/04/20 Status: Ordered Repeat number: 1 Vitamin D 49964 iu oral capsule 50,000 International_Units, 1, capsule, By Mouth, Every Saturday, Refills 0, Maintenance, 08/13/18 11:02:22 AM EDT Start Date: 08/13/18 Status: Ordered Repeat number: 1 Problem List Condition Confirmation Course Effective Dates Status Health St atus Informant Severe obesity Confirmed Active Vital Signs Most recent to oldest [Reference Range]: 1 Height 160 cm (06/04/24 8:51 AM) Oxygen Saturation [94-100 %] 97 % (06/04/24 8:51 AM) Pulse Rate [55-90 bpm] 81 bpm (06/04/24 8:51 AM) Blood Pressure [90-138/55-84 mm Hg] 137/ 87mm Hg (06/04/24 8:51 AM) Mode of Delivery (Oxygen) Room air (06/04/24 8:51 AM) Blood pressure sites Arm, left (06/04/24 8:51 AM) Social History Social History Type Response Smoking Status Former smoker, quit more than 30 days ago; Other: quit in 1995; entered on: 08/13/18 Sex Sex Representation Female (finding) Patient Care team information Care Team Personnel Name: Chuck GALLO, Balbina Chappell Position: Reference Physician Member Role: PCP Address: [address] [place] [id number] Telecom: Name: Hafsa Pace Position: [facility] AMB Nurse Member Role: Lifetime Consulting Physician Name: Raeann Curtis RN Position: [facility] OB RN Member Role: Primary Care Nurse Name: Rowdy Voss MD Position: [facility] POTATO CHIP SORTER MD Member Role: Lifetime POTATO CHIP SORTER Physician Address: [address] [place] [address]'s [facility] POTATO CHIP SORTER [place], [place] [address] Telecom: Care Team Related Persons Name: LETICIA SOSA Name: YESSENIA GARCÍA Insurance Providers Guarantor name: KELBY WADEARTY Health Plan Information #: 1 Payer: [employer] Member Number: [id number] Policy Number: NA Group Number: NA Health Plan Information #: 2 Payer: [place] Member Number: [id number] Policy Number: NA Group Number: NA
--- OUTSIDE RECORDS SUMMARY | 2024-06-12 09:15 | XMS_ITS | Encounter Summary ---
Author Organization [facility] Address [address] [place] [address] Care Team Providers Care Industrial Pipefitter Journeyman Name Role Phone Balbina Woods MD Primary Care Provider [phone] Josue Fernandes MD Unavailable [phone] Encounter Details Date Type Department Care Team Description 12/27/2023 Orders Only Internal Medicine - [address], [address] [place] [address] Balbina Woods MD [address] [place] [phone] Neck pain Social History Tobacco Use Types Packs/Day [...] Procedure Name Priority Date/Time Associated Diagnosis Comments CHG RADEX SPINE CERVICAL 4 OR 5 VIEWS Routine 12/26/2023 Neck pain documented in this encounter Results * X-RAY EXAM OF NECK SPINE, 4+ VIEWS (12/26/2023) Balbina Woods MD RADIOLOGY documented in this encounter Visit Diagnoses Diagnosis Neck pain Cervicalgia documented in this encounter Care Teams Industrial Pipefitter Journeyman Relationship Specialty Start Date End Date Balbina Woods MD PCP - General Internal Medicine 02/14/17 Josue Fernandes MD 300 [facility] 154 [place] [address] Specialist Cardiovascular Disease 08/15/22 documented as of this encounter
--- OUTSIDE RECORDS SUMMARY | 2024-06-12 09:15 | XMS_ITS | Encounter Summary ---
Author Organization [facility] Address [address] [place] [address] Care Team Providers Care Sed Special Education Teacher Name Role Phone Balbina Woods MD Primary Care Provider [phone] Josue Fernandes MD Unavailable [phone] Encounter Details Date Type Department Care Team Description 01/02/2019 Environmental Laboratory Technician Report Medical Records [address] [place] [address] Michelle Dewitt NP Social History Tobacco Use [...] on filedocumented in this encounter Care Teams Sed Special Education Teacher Relationship Specialty Start Date End Date Balbina Woods MD PCP - General Internal Medicine 02/14/17 Josue Fernandes MD 300 [facility] 154 [place], [place] [id number] Specialist Cardiovascular Disease 08/15/22 documented as of this encounter
--- OUTSIDE RECORDS SUMMARY | 2024-06-12 09:15 | XMS_ITS | Encounter Summary ---
Author Organization [facility] Address [address] [place] [address] Care Team Providers Care Rope Silica Machine Operator Name Role Phone Balbina Woods MD Primary Care Provider [phone] Josue Fernandes MD Unavailable Encounter Details Date Type Department Care Team Description 01/01/2019 Psychiatric Arnp Report Medical Records [address] [place] [address] Todd Doty MD Social History Tobacco Use [...] on filedocumented in this encounter Care Teams Rope Silica Machine Operator Relationship Specialty Start Date End Date Balbina Woods MD PCP - General Internal Medicine 02/14/17 Josue Fernandes MD 300 [facility] 154 [place], [place] [id number] Specialist Cardiovascular Disease 08/15/22 documented as of this encounter
--- OUTSIDE RECORDS SUMMARY | 2024-06-12 09:15 | XMS_ITS | Encounter Summary ---
Author Organization [facility] Address [address] [place] [address] Care Team Providers Care Travel Director Name Role Phone Balbina Woods MD Primary Care Provider [phone] Josue Fernandes MD Unavailable [phone] Encounter Details Date Type Department Care Team Description 06/18/2022 Shuttle Preparation Supervisor Report Medical Records [address] [place] [address] Alonso Mcmillan MD Social History Tobacco Use [...] on filedocumented in this encounter Care Teams Travel Director Relationship Specialty Start Date End Date Balbina Woods MD PCP - General Internal Medicine 02/14/17 Josue Fernandes MD 300 [facility] [address] [place] [address] Specialist Cardiovascular Disease 08/15/22 documented as of this encounter
--- OUTSIDE RECORDS SUMMARY | 2024-06-12 09:15 | XMS_ITS | Encounter Summary ---
Author Organization [facility] Address [address] [place] [address] Care Team Providers Care Sterilizer Operator Name Role Phone Balbina Woods MD Primary Care Provider [phone] Josue Fernandes MD Unavailable [phone] Encounter Details Date Type Department Care Team Description 06/26/2022 Electric Deicer Inspector Report Medical Records [address] [place] [address] Troy Coronado DO Social History Tobacco Use Types Packs/Day Years [...] on filedocumented in this encounter Care Teams Sterilizer Operator Relationship Specialty Start Date End Date Balbina Woods MD PCP - General Internal Medicine 02/14/17 Josue Fernandes MD 300 [facility] [address] [place] [address] Specialist Cardiovascular Disease 08/15/22 documented as of this encounter
--- OUTSIDE RECORDS SUMMARY | 2024-06-12 09:15 | XMS_ITS | Encounter Summary ---
Author Organization [facility] Address [address] [place] [address] Care Team Providers Care Sea Kayaking Guide Name Role Phone Balbina Woods MD Primary Care Provider [phone] Josue Fernandes MD Unavailable [phone] Encounter Details Date Type Department Care Team Description 07/31/2022 Mud Mixer Report Medical Records [address] [place] [address] Troy Coronado DO Social History Tobacco Use [...] on filedocumented in this encounter Care Teams Sea Kayaking Guide Relationship Specialty Start Date End Date Balbina Woods MD PCP - General Internal Medicine 02/14/17 Josue Fernandes MD 300 [facility] 154 [place] [address] Specialist Cardiovascular Disease 08/15/22 documented as of this encounter
--- OUTSIDE RECORDS SUMMARY | 2024-06-12 09:15 | XMS_ITS | Encounter Summary ---
Author Organization [facility] Address [address] [place] [address] Care Team Providers Care Sales Incentive Analyst Name Role Phone Balbina Woods MD Primary Care Provider [phone] Josue Fernandes MD Unavailable [phone] Reason for Visit * Reason Onset Date Comments TEST RESULTS 12/10/2018 Encounter Details Date Type Department Care Team Description 12/10/2018 Telephone Pulmonology - [place] 175 [facility] [address] [place] [phone] Chuyita Peoples MD [address] [place] [phone] TEST RESULTS Social History Tobacco Use Types Packs/Day Years [...] encounter Miscellaneous Notes * Telephone Encounter - Chuyita Peoples MD - 12/11/2018 4:18 PM EDT D/w her- start 2 liters o2 qhs * Telephone Encounter - Iveth Mcdonough - 12/10/2018 4:44 PM EDT Inform patient: ANY URGENT OR ABNORMAL RESULTS WIILL RESULT IN A CALL BACK TO THE PATIENT MEENU. Type of test: :OXIMETER Date test was performed: 2 MONTHS Where was the test performed: AT HOME Who ordered this test?: Dr. Peoples Is the doctor here today?: YES Can the message wait until the doctor returns?: NO IF PATIENT'S PCP IS NOT IN INSTRUCT PATIENT THAT THEY WILL RECEIVE A CALL BACK WHEN THE PCP IS IN THE OFFICE NEXT. documented in this encounter Plan of Treatment Not on file documented as of this encounter Visit Diagnoses Not on filedocumented in this encounter Care Teams Sales Incentive Analyst Relationship Specialty Start Date End Date Balbina Woods MD PCP - General Internal Medicine 02/14/17 Josue Fernandes MD [address] [place] [address] Specialist Cardiovascular Disease 08/15/22 documented as of this encounter
--- OUTSIDE RECORDS SUMMARY | 2024-06-12 09:15 | XMS_ITS | Encounter Summary ---
Author Organization [facility] Address [address] [place] [address] Care Team Providers Care Education And Training Manager Name Role Phone Balbina Woods MD Primary Care Provider [phone] Josue Fernandes MD Unavailable [phone] Reason for Visit * Reason Onset Date Comments Information Needed 12/11/2018 APPOINTMENT 12/11/2018 [facility] Encounter Details Date Type Department Care Team Description 12/11/2018 Telephone Pulmonology - [place] 175 [facility] [address] [place] [phone] Chuyita Peoples MD [address] [place] [phone] Information Needed; APPOINTMENT ([facility]) Social History Tobacco Use Types Packs/Day Years [...] encounter Miscellaneous Notes * Telephone Encounter - Alesia Kaur - 12/11/2018 4:51 PM EDT Di from [facility] is stating that the patient need a overnight oximetry because the one that orginally sent is to old. They can only hold it for 30 days and the last 10/29/18. Di also needs clinial notes from the previous visit. But the visit also must be within 30 days of the time the nocturnaloxgyen, Please advise. documented in this encounter Plan of Treatment Not on file documented as of this encounter Visit Diagnoses Not on filedocumented in this encounter Care Teams Education And Training Manager Relationship Specialty Start Date End Date Balbina Woods MD PCP - General Internal Medicine 02/14/17 Josue Fernandes MD [address] [place] [address] Specialist Cardiovascular Disease 08/15/22 documented as of this encounter
--- OUTSIDE RECORDS SUMMARY | 2024-06-12 09:15 | XMS_ITS | Clinical Summary ---
Author Organization [facility] Address [address] [place] [address] Phone Care Team Providers Care Captain Waiter Name Role Phone Balbina Woods MD Primary Care Provider Allergies Active Allergy Reactions Criticality Noted Date Comments Lisinopril 08/15/2012 Other reaction(s): tremors cough Penicillin G 07/21/2021 Other reaction(s): hives Penicillins 04/25/2011 Other Reaction(s): Rash/Dermatitis Medications ergocalciferol (VITAMIN D-2) 1,250 mcg (50,000 unit) capsule Take 1 capsule (50,000 Units total) by mouth 1 (one) time per week. 05/29/19 24 Active RABEprazole (ACIPHEX) 20 mg EC tablet Take 1 tablet (20 mg total) by mouth 1 (one) time each day. 07/05/19 24 Active sodium,potassium, mag sulfates (SUPREP) 17.5-3.13-1.6 gram recon soln bowel prep kit oral solution Take 177 mL by mouth See Admin Instructions for 2 doses. 05/16/19 24 Active multivitamin (MULTIPLE VITAMINS ORAL) Take by mouth. Active omeprazole (PriLOSEC) [address] capsule Take 1 capsule (20 mg total) by mouth 1 (one) time each day. Active gabapentin (NEURONTIN) 100 mg capsule Take 2 Capsules by mouth 2 times daily. Active propranoloL (INDERAL) 10 mg tablet Take 1 Tablet by mouth 3 times daily as needed (palpitations). 11/07/19 Active silver sulfADIAZINE (SILVADENE, SSD) 1 % cream Apply small amount to the wound once daily before dressing with bandaid 09/19/19 Active vibegron (Gemtesa) 75 mg tablet tablet Take 1 tablet (75 mg total) by mouth 1 (one) time each day. 12/07/19 Active acetaminophen (TYLENOL) 500 mg tablet Take 1,000 mg by mouth. 02/26/20 Active ascorbic acid, vitamin C, 100 mg tablet,chewable Take by mouth. 10/05/19 Active cyanocobalamin (VITAMIN B-12) 100 mcg tablet 0 Refills, Maintenance, 10/04/20 9:13:00 EDT, Partial fill upon patient request if the prescription is for a schedule II opioid drug. 10/05/19 Active cholecalciferol (VITAMIN D-3) 1,250 mcg (50,000 unit) capsule Take 50,000 Int'l Units by mouth. 08/14/19 Active calcium carbonate (TUMS) 500 mg (200 mg elemental calcium) chewable tablet 500 mg. 10/05/19 Active methyl salicylate/mentho l (EXTRA STRENGTH MUSCLE RUB TOP) Apply topically. Active norethindrone (AYGESTIN) 5 mg tablet Take 5 mg by mouth daily. 12/26/19 Active rizatriptan (MAXALT-BANQUET PILOT) 10 mg disintegrating tablet DISSOLVE 1 TABLET ON TONGUE, THEN SWALLOW ONCE NEEDED. MAY REPEAT IN 2 HRS NEEDED, MAX 3 TABS 02/28/20 Active cyclobenzaprine (FLEXERIL) 5 mg tablet Take 1 Tablet by mouth at bedtime as needed for Muscle spasms. - Oral Active doxycycline hyclate (VIBRA-TABS) 100 mg tablet Take 1 Tablet by mouth 2 times daily. - Oral Active losartan (COZAAR) 100 mg tablet TAKE 1 TABLET BY MOUTH EVERY DAY Active metFORMIN (GLUCOPHAGE) 500 mg tablet TAKE 1 TABLET BY MOUTH TWICE A DAY WITH MEALS 180 tablet 2 04/27/19 25 Active albuterol 2.5 mg /3 mL (0.083 %) nebulizer solution Take 3 mL (2.5 mg total) by nebulization every 6 (six) hours if needed for wheezing. 300 mL 1 05/29/19 25 026 Active albuterol HFA (PROAIR HFA ; PROVENTIL HFA ; VENTOLIN HFA) 90 mcg/actuation inhalerIndication s:Mild persistent asthma, unspecified whether complicated Inhale 2 puffs by mouth every 4 (four) hours if needed for wheezing. 6.7 g 3 05/29/19 25 025 Active erenumab-aooe (Aimovig Autoinjector) 70 mg/mL injectionIndicati ons:Chronic migraine with aura without status migrainosus, not intractable Inject 1 mL (70 mg total) under the skin every 30 (thirty) days. 1 mL 3 06/02/19 25 Active permethrin (ELIMITE) 5 % cream Apply to skin from hairline to toes and wash off 8-10 hours later. 60 g 06/02/19 25 025 Active albuterol HFA (PROAIR HFA ; PROVENTIL HFA ; VENTOLIN HFA) 90 mcg/actuation inhaler Inhale 2 Puffs into the lungs every 6 hours as needed for Cough or Wheezing (Dyspnea/Wheezi ng) for up to 30 days. This is a Rescue Medication; not exceed 12 inhalations/24 hrs. 04/29/19 21 025 Discontinu ed(Reorder ) erenumab-aooe (Aimovig Autoinjector) 70 mg/mL injection 04/24/19 20 025 Discontinu ed(Reorder ) tirzepatide, weight loss, (Zepbound) 2.5 mg/0.5 mL injectionIndicati ons:Class 3 severe obesity with body mass index (BMI) of 50.0 to 59.9 in adult, unspecified obesity type, unspecified whether serious comorbidity present ([facility]) Inject 0.5 mL (2.5 mg total) under the skin every 7 (seven) days for 4 doses. 2 mL 04/21/19 25 025 Active Problems Problem Noted Date Diagnosed Date Class 3 severe obesity with body mass index (BMI) of 50.0 to 59.9 in adult 01/17/2024 Cubital tunnel syndrome on left 06/05/2023 Cubital tunnel syndrome, right 06/05/2023 Gait instability 05/07/2023 Post-traumatic osteoarthritis of left knee 05/07 Primary osteoarthritis of right knee 05/07/2023 Ingrowing nail 08/10/2022 Palpitations 08/10/2022 Partial tear of right rotator cuff 12/07/2020 Cuenca's esophagus 12/12/2017 Migraine, unspecified, not i ntractable, without status migrainosus 12/10/2017 Depression 05/31/2017 Urinary [...] 10/30/2011 Hearing loss 10/03/2011 Pernicious anemia 10/03/2011 Encounters Date Type Department Care Team Description 06/05/2024 8:00 AM EST Nutrition Bariatric Surgery - [address] [phone] Class 3 severe obesity with body mass index (BMI) of 50.0 to 59.9 in adult, unspecified obesity type, unspecified whether serious comorbidity present (CMS/[facility]) (Primary Dx) 06/02/2024 8:30 AM EST Office Visit Internal Medicine - [address] [phone] Balbina Woods MD Scabies (Primary Dx); Chronic midline low back pain without sciatica; Nonintractable headache, unspecified chronicity pattern, unspecified headache type; Chronic migraine with aura without status migrainosus, not intractable; Adult general medical examination 04/21/2024 8:45 AM EST Office Visit Bariatric Surgery - [address] [phone] Lanre Sandoval MD Class 3 severe obesity with body mass index (BMI) of 50.0 to 59.9 in adult, unspecified obesity type, unspecified whether serious comorbidity present (CMS/HCC) (Primary Dx) 04/03/2024 8:00 AM EST Nutrition Bariatric Surgery - [place] [address] [facility] [address] [place] [phone] [address] Class 3 severe obesity with body mass index (BMI) of 50.0 to 59.9 in adult, unspecified obesity type, unspecified whether serious comorbidity present (CMS/HCC) (Primary Dx) 03/27/2024 7:35 AM EST - 03/27/2024 11:59 PM EST Hospital Encounter [facility] Xray [address] [place] [phone] Discharge Disposition: Home or Self Care 03/24/2024 Telephone Internal Medicine - [place] [address] [facility] [address] [place] [phone] Kathleen Bazan [place] faxed order ([facility]) 03/23/2024 Telephone Bariatric Surgery - [place] [address] [facility] [address] [place] [phone] [address] Advice Only ([facility] eval) 03/16/2024 2:08 PM EST - 03/16/2024 3:22 PM EST Emergency [facility] Emergency [address] [place] [phone] Loretta Barron DO Bronchitis (Primary Dx); Upper respiratory tract infection, unspecified type Discharge Disposition: Home or Self Care from Last 3 Months Immunizations Name Administration Dates Next Due Influenza Quadravalent, MDCK , 0.5ml, preservative free (Flucelvax) 6mo and older 02/24/2021,02/23/2020,03/06/2018 Influenza trivalent, 0.5mL, preservative free (Fluarix; FluLaval; Fluzone) ages 6mo and older (Afluria) 3 years and older 02/21/2016,04/05/2014,01/09/2012,02/01 Influenza trivalent, with pr eservative (Fluzone; Afluria) 6mo and older 02/18/2019,01/29/2017 PPD Test 12/24/2011 Pfizer SARS-CoV-2 COVID-19, mRNA, LNP-S, preservative free 07/15/2020,06/24/2020 Pneumococcal conjugate 13 va lent (Prevnar 13, PCV13) 2mo and older 02/21/2016 Pneumococcal polysaccharide 23 valent (Pneumovax 23) 2yo and older 08/11/2021,03/27/2013 Tdap Tetanus diptheria acell ular pertussis (Boostrix; Adacel) 7yo and older 12/01/2018 Surgical History Surgery Date Site/Laterality Comments GASTRIC BYPASS 08/2014 PROCEDURE: [place] GASTRIC RSTCV W/BYP W/SM INT RCNSTJ LIMIT ABSRPJ; COMMENT: gastric sleeve procedure OTHER SURGICAL HISTORY PROCEDURE: HISTORICAL EAR SURGERY; COMMENT: myringotomy KNEE ARTHROPLASTY 01/2014 Left PROCEDURE: [place] ARTHRS KNEE ABRASION ARTHRP/BANQUET PILOT DRLG/MICROFX Medical History Medical History Date Comments Learning disability 10/30/2011 DX:Learning disability B12 deficiency 03/18/2015 DX:B12 deficienc y 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 DX :Cutaneous lupus erythematosus History of bariatric surgery 03/17/2018 DX: History of bariatric surgery; COMMENT: Gastric sleeve Allergic rhinitis 02/21/2016 DX:Allergic rh initis Asthma 10/04/2016 DX:Asthma Cuenca's esophagus 12/12/2017 DX:Cuenca's esophagus Carpal tunnel syndrome 01/29/2017 DX:Carpal tunnel syndrome Cyst of ovary 05/27/2013 DX:Cyst of ovary Depression 05/31/2017 DX:Depression Eczema 01/29/2017 DX:Eczema 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 DX:Gastric atony Gastroesophageal reflux disease 12/26/2015 DX:Gastroesophageal reflux disease Hearing loss 10/03/2011 DX:Hearing loss Hereditary essential tremor 08/21/2013 DX:H ereditary essential tremor Hiatal hernia 05/17/2014 DX:Hiatal hernia Hypertension 10/04/2016 DX:Hypertension Incomplete emptying of bladder 08/20/2013 D X:Incomplete emptying of bladder Internal hemorrhoids 12/27/2016 DX:Internal hemorrhoids Migraine, unspecified, not i ntractable, without status migrainosus 12/10/2017 DX:Migraine, unspecified, n ot intractable, without status migrainosus Morbid obesity with BMI of 5 0.0-59.9, adult ([facility]) 12/21/2016 DX:Morbid obesity with BMI o f 50.0-59.9, adult ([facility]) Onychomycosis 12/28/2013 DX:Onychomycosis Pernicious anemia 10/03/2011 DX:Pernicious anemia Polycystic ovaries 08/20/2013 DX:Polycystic ovaries Snores 10/06/2012 DX:Snores Urinary incontinence 05/31/2017 DX:Urinary incontinence Vitamin D deficiency 03/18/2015 DX:Vitamin D deficiency Family History Medical History Relation Name Comments Diabetes Father rheumatoid and osteoartrhritis Thyroid disease Mother Relation Name Status Comments Father Mother Social History Tobacco Use Types Packs/Day Years [...] AM EST Sexual Orientation Not on file Obstetrics History Last Filed Vital Signs Vital Sign Reading Time Taken Comments Blood Pressure 122/78 06/02/2024 8:23 AM EST Pulse 64 06/02/2024 8:23 AM EST Temperature 36.5 ??C (97.7 ??F) 06/02/2024 8:23 AM ES T Respiratory Rate 20 03/16/2024 2:26 PM EST Oxygen Saturation 98% 06/02/2024 8:23 AM EST Inhaled Oxygen Concentration - - Weight 150 kg (331 lb) 06/05/2024 8:00 AM EST Height 160 cm (5' 3 ) 04/21/2024 9:06 AM EST Body Mass Index 58.63 04/21/2024 9:06 AM EST Plan of Treatment Upcoming Encounters Date Type Department Care Team (Late st Contact Info) Description 07/17/2024 8:00 AM EDT Consult [facility] [address] [facility] [address] [place] [phone] Lisa Larios MD [address] [facility] [address] [place] [phone] 07/28/2024 8:00 AM EDT Office Visit Bariatric Surgery - [place] [address] [facility] [address] [place] [phone] Lanre Sandoval MD [address] [facility] [address] [place], [place] [phone] 08/07/2024 8:00 AM EDT Nutrition Bariatric Surgery - [place] [address] [facility] [address] [place] [phone] [facility] [address] [place], [place] [phone] 11/06/2024 8:45 AM EDT Office Visit Internal Medicine - [place] [address] [facility] [address] [place] [phone] Balbina Woods MD [address] [facility] [address] [place] [phone] 11/27/2024 8:15 AM EDT Office Visit Pulmonolgy - [place] [address] [facility] [address] [place] [phone] Chuyita Peoples MD [address] [facility] [address] [place] [address] Health Maintenance Due Date Last Done Comments Hepatitis B Vaccines (1 of 3 - 19+ 3-dose series) 1994 Depression Screening 03/17/2022 HIV Screening 03/17/2022 Hepatitis C Screening 03/17/2022 Social Influencers of Health Screening 03/17/2022 COVID-19 Vaccine ( season) 2023 05/26/2021, 07/15/2020, 06/24/2020 Hypertension/CHF/CAD Annual BMP Blood Test 01/09/2025 01/10/2024, 01/10/2024 Breast Cancer Screening 03/13/2026 03/13/20 24, 03/13/2024, 02/19/2023, Additional history exists Colorectal Cancer Screening: Colonoscopy 06/05/2026 Cervical Cancer Screening: HPV 06/09/2026 06/09/2021 Pneumococcal Vaccine: Pediatrics (0 to 5 Years) and At-Risk Patients (6 to 64 Years) (3 of 3 - PCV20 or PCV21) 08/11/2026 08/11/2021, 02/21/2016, 03/27/2013 DTaP,Tdap,and Td Vaccines (2 - Td or Tdap) 12/01/2028 12/01/2018 Cholesterol Screening (Lipid Panel) 01/09/2029 01/10/2024, 01/10/2024 Influenza Vaccine Completed 12/22/2023, , 01/05/2022, Additional history exists HIB Vaccines Aged Out No longer eligi ble based on patient's age to complete this topic HPV Vaccines Aged Out No longer eligi ble based on patient's age to complete this topic Hepatitis A Vaccines Aged Out No long er eligible based on patient's age to complete this topic IPV Vaccines Aged Out No longer eligi ble based on patient's age to complete this topic MMR Vaccines Aged Out No longer eligi ble based on patient's age to complete this topic Meningococcal ACWY Vaccine Aged Out N o longer eligible based on patient's age to complete this topic Meningococcal B Vacine Aged Out No lo nger eligible based on patient's age to complete this topic RSV Immunization Patients Under 20 months Aged Out No longer eligible based on patient's age to complete this topic Varicella Vaccines Aged Out No longer eligible based on patient's age to complete this topic Procedures Procedure Name Priority Date/Time Associated Diagnosis Comments XR UGI W AIR CONTRAST Routine 03/27/2024 8:29 AM EST Morbid (severe) obesity due to excess calories (CMS/[facility]) Body mass index (BMI) 50.0-59.9, adult (CMS/HCC) XR CHEST 2 VIEWS STAT 03/16/2024 11:1 7 AM EST RESPIRATORY VIRUS PANEL MOLECULAR STUDY STAT 03/16/2024 10:15 AM EST EXTERNAL XRAY REPORT 03/16/2024 MG MAMMO DIGITAL SCREENING W J CARLOS BILAT Routine 03/13/2024 8:01 AM EST Encounter for screening mammogram for breast cancer ANNUAL BMP BLOOD TEST Routine 01/10/2024 LIPID PANEL Routine 01/10/2024 HPV Routine 06/09/2021 from Last 3 Months or Most Recently Relevant to Health Maintenance Results * XR UGI w Air Contrast (03/27/2024 8:29 AM EST) Anatomical Region Laterality Modality Body Radiographic Elaine ging 03/27/2024 8:40 AM EST Impressions 03/27/2024 8:46 AM EST Limited examination. Moderate esophageal dysmotility. The patient is seen to have undergone previous gastric sleeve surgery, with grossly satisfactory appearance. There is rapid progression of contrast from the stomach into the duodenum and proximal small bowel. -------- FINAL REPORT -------- Dictated By: Christophe Lei Dictated Date: 03/27/2024 08:40 ET Assigned Physician: Christophe Lei Reviewed and Electronically Signed By: Christophe Lei Signed Date: 03/27/2024 08:46 ET Workstation ID: [id number] Transcribed By: Self Edit Transcribed Date: 03/27/2024 08:40 ET Narrative 03/27/2024 8:46 AM EST HISTORY: The patient is a 49-year-old female with morbid obesity, who underwent previous gastric sleeve surgery. The patient presents with stagnation of weight loss. FINDINGS: This is a limited study due to the patient's poor mobility. Notch Machine Operator AP radiograph of the abdomen demonstrates multiple surgical clips in the left upper quadrant consistent with the history of gastric sleeve surgery. There is mild levoscoliosis of the lumbar spine. The bowel gas pattern is nonobstructive. No mass or radiopaque calculus is seen. Effervescent crystals were administered orally. Thick and thin barium was then administered orally under fluoroscopic control. There is moderate esophageal dysmotility as evidenced by decreased efficacy of the primary peristaltic stripping wave, a patulous appearance of the esophagus, and slow transit of barium. No ulcer, stricture, or filling defect is demonstrated. There is a small axial hiatal hernia. There is no radiographic evidence of esophagitis. No gastroesophageal reflux could be elicited. Evaluation of the stomach is limited as the patient only poorly tolerated the effervescent crystals. The configuration of the stomach is consistent with gastric sleeve surgery. No ulcer, filling defect, or extrinsic impression is seen. The duodenal bulb and sweep are of normal appearance. The visualized portion of the proximal jejunum demonstrates no abnormality. Procedure Note Christophe Lei MD - 03/27/2024 HISTORY: The patient is a 49-year-old female with morbid obesity, whounderwent previous gastric sleeve surgery. The patient presents withstagnation of weight loss. FINDINGS: This is a limited study due to the patient's poor mobility. Notch Machine Operator AP radiograph of the abdomen demonstrates multiple surgical clips inthe left upper quadrant consistent with the history of gastric sleevesurgery. There is mild levoscoliosis of the lumbar spine. The bowel gaspattern is nonobstructive. No mass or radiopaque calculus is seen. Effervescent crystals were administered orally. Thick and thin barium wasthen administered orally under fluoroscopic control. There is moderateesophageal dysmotility as evidenced by decreased efficacy of the primaryperistaltic stripping wave, a patulous appearance of the esophagus, andslow transit of barium. No ulcer, stricture, or filling defect isdemonstrated. There is a small axial hiatal hernia. There is noradiographic evidence of esophagitis. No gastroesophageal reflux could beelicited. Evaluation of the stomach is limited as the patient only poorlytolerated the effervescent crystals. The configuration of the stomach isconsistent with gastric sleeve surgery. No ulcer, filling defect, orextrinsic impression is seen. The duodenal bulb and sweep are of normalappearance. The visualized portion of the proximal jejunum demonstrates noabnormality. IMPRESSION: Limited examination. Moderate esophageal dysmotility. The patient is seento have undergone previous gastric sleeve surgery, with grosslysatisfactory appearance. There is rapid progression of contrast from thestomach into the duodenum and proximal small bowel. -------- FINAL REPORT -------- Dictated By: Christophe Lei Dictated Date: 03/27/2024 08:40 ET Assigned Physician: Christophe Lei Reviewed and Electronically Signed By: Christophe Lei Signed Date: 03/27/2024 08:46 ET Workstation ID: [id number] Transcribed By: Self Edit Transcribed Date: 03/27/2024 08:40 ET Lanre Sandoval MD IMG FLUOROSCOPY PROCEDURES F inal Result * XR Chest 2 Views (03/16/2024 11:17 AM EST) Anatomical Region Laterality Modality Body Radiographic Elaine ging 03/16/2024 11:2 6 AM EST Impressions 03/16/2024 11:27 AM EST Hypoventilatory study. ??No acute infiltrate. ??No effusion. ??The mediastinum appears normal. -------- FINAL REPORT -------- Dictated By: Josue Cabrera Dictated Date: 03/16/2024 11:26 ET Assigned Physician: Josue Cabrera Reviewed and Electronically Signed By: Josue Cabrera Signed Date: 03/16/2024 11:27 ET Workstation ID: [id number] Transcribed By: Self Edit Transcribed Date: 03/16/2024 11:26 ET Narrative 03/16/2024 11:27 AM EST Frontal and lateral view of the chest COMPARISON: Chest radiograph February 14 INDICATION: Bronchitis Procedure Note Josue Cabrera MD - 03/16/2024 Frontal and lateral view of the chest COMPARISON: Chest radiograph February 14 INDICATION: Bronchitis IMPRESSION: Hypoventilatory study. No acute infiltrate. No effusion. Themediastinum appears normal. -------- FINAL REPORT -------- Dictated By: Josue Cabrera Dictated Date: 03/16/2024 11:26 ET Assigned Physician: Josue Cabrera Reviewed and Electronically Signed By: Josue Cabrera Signed Date: 03/16/2024 11:27 ET Workstation ID: [id number] Transcribed By: Self Edit Transcribed Date: 03/16/2024 11:26 ET Loretta Barron DO IMG XR PROCEDURES Final R esult * (ABNORMAL) Respiratory virus panel molecular study (03/16/2024 10:15 AM EST) Adenovirus Detection by PCR Not Detected Not Detected LAB MICROBIOLOGY METHOD 03/16/2024 11:32 AM [facility] Influenza A PCR Not Detected Not Detected LAB MICROBIOLOGY METHOD 03/16/2024 11:32 AM [facility] Influenza B PCR Not Detected Not Detected LAB MICROBIOLOGY METHOD 03/16/2024 11:32 AM [facility] Coronavirus 229E Not Detected Not Detected LAB MICROBIOLOGY METHOD 03/16/2024 11:32 AM [facility] Coronavirus [id number] Not Detected Not Detected LAB MICROBIOLOGY METHOD 03/16/2024 11:32 AM [facility] Coronavirus [id number] Not Detected Not Detected LAB MICROBIOLOGY METHOD 03/16/2024 11:32 AM [facility] Coronavirus [id number] Not Detected Not Detected LAB MICROBIOLOGY METHOD 03/16/2024 11:32 AM [facility] Parainfluenza Virus 1 Not Detected Not Detected LAB MICROBIOLOGY METHOD 03/16/2024 11:32 AM [facility] Parainfluenza Virus 2 Not Detected Not Detected LAB MICROBIOLOGY METHOD 03/16/2024 11:32 AM [facility] Parainfluenza Virus 3 Not Detected Not Detected LAB MICROBIOLOGY METHOD 03/16/2024 11:32 AM [facility] Parainfluenza Virus 4 Not Detected Not Detected LAB MICROBIOLOGY METHOD 03/16/2024 11:32 AM [facility] RSV PCR Not Detected Not Detected LAB MICROBIOLOGY METHOD 03/16/2024 11:32 AM [facility] Human Metapneumovirus A and B Not Detected Not Detected LAB MICROBIOLOGY METHOD 03/16/2024 11:32 AM EST [facility] Rhinovirus/Entero virus Detected(A ) Not Detected LAB MICROBIOLOGY METHOD 03/16/2024 11:32 AM EST [facility] Bordetella pertussis Not Detected Not Detected LAB MICROBIOLOGY METHOD 03/16/2024 11:32 AM EST [facility] Bordetella parapertussis Not Detected Not Detected LAB MICROBIOLOGY METHOD 03/16/2024 11:32 AM [facility] Mycoplasma pneumo by PCR Not Detected Not Detected LAB MICROBIOLOGY METHOD 03/16/2024 11:32 AM [facility] Chlamydia pneumoniae Not Detected Not Detected LAB MICROBIOLOGY METHOD 03/16/2024 11:32 AM [facility] SARS COV-2 Not Detected Not Detected LAB MICROBIOLOGY METHOD 03/16/2024 11:32 AM [facility] Swab Both anterior nares / Unknown Non-blood Collection / Unknown 03/16/2024 10:15 AM EST 03/16/2024 10:36 AM EST [facility] - 03/16/2024 11:32 AM EST Testing was performed using the [employer] Respiratory Pathogen PCR Assay. All results must be correlated with the clinical findings. Results should not be used as the sole basis for diagnosis. False Negative results may occur from the presence of sequence variants in the region targeted by the assay or the presence of inhibitors. Results may be affected by concurrent antiviral/antimicrobial therapy or levels of organisms that are below the limit of detection. us Loretta Barron DO LAB MICROBIOLOGY - GENERA L ORDERABLES Final Result [facility] [address] [place] [address], * External Xray Report (03/16/2024) Anatomical Region Laterality Modality Radiographic Elaine ging us Provider [facility] IMG XR PROCEDURES Final Result * MG Mammo Digital Screening w J Carlos bilat (03/13/2024 8:01 AM EST) Anatomical Region Laterality Modality Breast Bilateral Mammography 03/13/2024 8:24 AM EST Impressions 03/13/2024 8:26 AM EST No evidence of breast malignancy. BI-RADS CATEGORY: 1 - NEGATIVE RECOMMENDATION: Screening bilateral mammogram is recommended in 1 year. Mammo Location: [facility], [address] [place] [address], [id number], . -------- FINAL REPORT -------- Dictated By: Adriana Chamberlain Dictated Date: 03/13/2024 08:24 ET Assigned Physician: Adriana Chamberlain Reviewed and Electronically Signed By: Adriana Chamberlain Signed Date: 03/13/2024 08:26 ET Workstation ID: [id number] Transcribed By: Self Edit Transcribed Date: 03/13/2024 08:24 ET Narrative 03/13/2024 8:26 AM EST CLINICAL: 49 years old, Female, routine annual exam. COMPARISON: 02/19/2023, 02/13/2022, 01/13/2021, 10/28/2018 ?? TECHNIQUE: Bilateral MLO and CC views were obtained digitally with 3-D mammogram (digital breast tomosynthesis). Computer-aided detection was utilized in evaluation of this exam (CAD). FINDINGS: There is no evidence of suspicious mass or architectural distortion. ??No worrisome calcifications are evident. ??There has been no significant change from prior exam(s). ?? BREAST DENSITY: A - The breasts are almost entirely fatty. Procedure Note Adriana Chamberlain MD - 03/13/2024 CLINICAL: 49 years old, Female, routine annual exam. COMPARISON: 02/19/2023, 02/13/2022, 01/13/2021, 10/28/2018 TECHNIQUE: Bilateral MLO and CC views were obtained digitally with 3-Dmammogram (digital breast tomosynthesis). Computer-aided detection wasutilized in evaluation of this exam (CAD). FINDINGS: There is no evidence of suspicious mass or architectural distortion. Noworrisome calcifications are evident. There has been no significantchange from prior exam(s). BREAST DENSITY: A - The breasts are almost entirely fatty. IMPRESSION: No evidence of breast malignancy. BI-RADS CATEGORY: 1 - NEGATIVE RECOMMENDATION: Screening bilateral mammogram is recommended in 1 year. Mammo Location: [facility], [address] [place] [address], [id number], . -------- FINAL REPORT -------- Dictated By: Adriana Chamberlain Dictated Date: 03/13/2024 08:24 ET Assigned Physician: Adriana Chamberlain Reviewed and Electronically Signed By: Adriana Chamberlain Signed Date: 03/13/2024 08:26 ET Workstation ID: [id number] Transcribed By: Self Edit Transcribed Date: 03/13/2024 08:24 ET Self Referral Sppl IMG BI PROCEDURES Final Resul t * Annual BMP Blood Test (01/10/2024) [facility] Annual BMP Blood Test abstracted [facility] Provider HEALTH MAINTENANCE Final Result * (ABNORMAL) Lipid panel (01/10/2024) [facility] LDL/HDL Ratio 3 0 - 4 Triglycerides 145 0 - 150 mg/dL Cholesterol 185 0 - 200 mg/dL HDL 54 >=40 mg/dL LDL Cholesterol 102(A) 0 - 100 mg/dL Blood Venous blood specimen / Unknown Historical Provider LAB BLOOD ORDERABLES Vi l Result * Cervical Cancer Screening: HPV (06/09/2021) [facility] Cervical Cancer Screening: HPV abstracted, negative [facility] Provider HEALTH MAINTENANCE Final Result from Last 3 Months or Most Recently Relevant to Health Maintenance Insurance [facility] Advance Directives Documents on File Type Date Recorded Patient Office Spec Expl anation Health Care Decision (hx) 06/19/2015 AD ALEJANDRE DIRECTIVE Health Care Decision (hx) 06/19/2015 AD ALEJANDRE DIRECTIVE Health Care Decision (hx) 06/19/2015 AD ALEJANDRE DIRECTIVE Health Care Decision (hx) 06/19/2015 AD ALEJANDRE DIRECTIVE Health Care Decision (hx) 06/19/2015 AD ALEJANDRE DIRECTIVE Health Care Decision (hx) 06/19/2015 AD ALEJANDRE DIRECTIVE Health Care Decision (hx) 06/19/2015 AD ALEJANDRE DIRECTIVE Health Care Decision (hx) 06/19/2015 AD ALEJANDRE DIRECTIVE Health Care Decision (hx) 06/19/2015 AD ALEJANDRE DIRECTIVE Health Care Decision (hx) 06/19/2015 AD ALEJANDRE DIRECTIVE Health Care Decision (hx) 06/19/2015 AD ALEJANDRE DIRECTIVE Health Care Decision (hx) 06/19/2015 AD ALEJANDRE DIRECTIVE Health Care Decision (hx) 06/19/2015 AD ALEJANDRE DIRECTIVE Health Care Decision (hx) 06/19/2015 AD ALEJANDRE DIRECTIVE Health Care Decision (hx) 06/19/2015 AD ALEJANDRE DIRECTIVE Health Care Decision (hx) 06/19/2015 AD ALEJANDRE DIRECTIVE Health Care Decision (hx) 06/19/2015 AD ALEJANDRE DIRECTIVE Health Care Decision (hx) 06/19/2015 AD ALEJANDRE DIRECTIVE Health Care Decision (hx) 06/19/2015 AD ALEJANDRE DIRECTIVE Health Care Decision (hx) 06/19/2015 AD ALEJANDRE DIRECTIVE Care Teams Captain Waiter Relationship Specialty Start Date End Date Balbina Woods MD [address] [place] [phone] PCP - General Internal Medicine 02/14/17
--- OUTSIDE RECORDS SUMMARY | 2024-06-12 09:15 | XMS_ITS | Encounter Summary ---
Author Organization [facility] Address [address] [place] [address] Care Team Providers Care Land Leasing Examiner Name Role Phone Balbina Woods MD Primary Care Provider [phone] Josue Fernandes MD Unavailable [phone] Reason for Visit * Reason Onset Date Comments LAB WORK 2024 Encounter Details Date Type Department Care Team Description 2024 Telephone Bariatric Surgery - [place] [address] [phone] Raeann Moncada MS,EDDIEN,KIERAN [address] [id number] LAB WORK Social History Tobacco Use Types Packs/Day Years [...] encounter Miscellaneous Notes * Telephone Encounter - Raeann Moncada MS,BUDDY,MANJIT - 2024 12:15 PM EDT Please order bariatric labs. Dr Sandoval is surgeon. documented in this encounter Plan of Treatment Not on file documented as of this encounter Visit Diagnoses Not on filedocumented in this encounter Care Teams Land Leasing Examiner Relationship Specialty Start Date End Date Balbina Woods MD PCP - General Internal Medicine 02/14/17 Josue Fernandes MD [address] [place] [address] Specialist Cardiovascular Disease 08/15/22 documented as of this encounter
--- OUTSIDE RECORDS SUMMARY | 2024-06-12 09:15 | XMS_ITS | Encounter Summary ---
Author Organization [facility] Address [address] [place] [address] Care Team Providers Care Farm Hand Name Role Phone Balbina Woods MD Primary Care Provider [phone] Josue Fernandes MD Unavailable [phone] Encounter Details Date Type Department Care Team Description 12/14/2022 Molecular Modeler Report Medical Records [address] [place] [id number] Alonso Mcmillan MD Social History Tobacco Use [...] on filedocumented in this encounter Care Teams Farm Hand Relationship Specialty Start Date End Date Balbina Woods MD PCP - General Internal Medicine 02/14/17 Josue Fernandes MD 300 [facility] [address] [place] [address] Specialist Cardiovascular Disease 08/15/22 documented as of this encounter
--- OUTSIDE RECORDS SUMMARY | 2024-06-12 09:15 | XMS_ITS | Encounter Summary ---
Author Organization [facility] Address [address] [place] [address] Care Team Providers Care Nurse Office Name Role Phone Balbina Woods MD Primary Care Provider [phone] Josue Fernandes MD Unavailable [phone] Encounter Details Date Type Department Care Team Description 12/13/2022 Card Folder Report Medical Records [address] [place] [address] Khushboo Rivera PA-C Social History Tobacco Use Types Packs/Day Years [...] on filedocumented in this encounter Care Teams Nurse Office Relationship Specialty Start Date End Date Balbina Woods MD PCP - General Internal Medicine 02/14/17 Josue Fernandes MD 300 [facility] [address] [place] [address] Specialist Cardiovascular Disease 08/15/22 documented as of this encounter
--- OUTSIDE RECORDS SUMMARY | 2024-06-12 09:15 | XMS_ITS | Clinical Summary ---
Author Organization [facility] Address [address] [phone] Phone Care Team Providers Care Disposition Clerk Name Role Phone Balbina Woods MD Primary Care Provider [phone] Allergies Active Allergy Reactions Criticality Noted Date Comments Lisinopril Other (see comments) 08/15/2012 Other reaction(s): tremors cough Penicillins Other (see comments) 04/25/2011 Other Reaction(s): Rash/Dermatitis Medications gabapentin (NEURONTIN) 100 MG capsule Take 1 capsule by mouth 1 (one) time each day in the morning 300mg at night Active metFORMIN (GLUCOPHAGE) 500 MG tablet Take 0.5 tablets by mouth 2 (two) times a day Active albuterol HFA (PROVENTIL HFA;VENTOLIN HFA) 108 (90 Base) MCG/ACT inhaler Inhale 2 puffs if needed 04/29/2020 Active Aimovig 70 MG/ML solution auto-injector 01/13/2021 Activ e norethindrone (AYGESTIN) 5 MG tablet Take 1 tablet by mouth 1 (one) time each day 01/30/2021 Active rizatriptan FURNACE CHARGER (MAXALT-FURNACE CHARGER) 10 MG dispersible tablet Take 1 tablet by mouth if needed 01/17/2021 Active losartan (COZAAR) 100 MG tablet Take 1 tablet by mouth 1 (one) time each day 01/16/2021 Active Gemtesa 75 MG tablet Take 1 tablet by mouth 1 (one) time each day 01/29/2022 Active RABEprazole (ACIPHEX) 20 MG EC tablet Take 20 mg by mouth in the morning and 20 mg in the evening. Do not crush, chew, or split. . Active omeprazole (PriLOSEC) [address] capsule Take 20 mg by mouth in the morning and 20 mg in the evening. Do not crush or chew. . Active acetaminophen (TYLENOL) 500 MG tablet Take 1,000 mg by mouth 1 (one) time each day Active Ascorbic Acid (vitamin C) 500 MG tablet Take 500 mg by mouth in the morning and 500 mg in the evening. Active cyanocobalamin (VITAMIN B-12) 1000 MCG tablet Take 1,000 mcg by mouth in the morning and 1,000 mcg in the evening. Active Advair Diskus 100-50 MCG/ACT aerosol powder INHALE 1 PUFF INTO THE LUNGS EVERY 12 HOURS FOR 30 DAYS. 01/18/2023 Active cholecalciferol (VITAMIN D-3) 1.25 MG (42529 UT) capsule Take 50,000 Int'l Units by mouth. 08/13/2018 Active Active Problems Problem Noted Date Diagnosed Date Ingrowing nail 08/10/2022 02/15/2023 Palpitations 08/10/2022 02/15/2023 Severe obesity 02/15/2022 Anemia 02/02/2021 Renal stone 02/02/2021 Partial thickness rotator cuff tear 12/07/2020 Urinary incontinence 05/31/2017 Essential hypertension 10/04/2016 Resolved Problems Problem Noted Date Diagnosed Date Resolved Date History of bariatric surgical procedure 03/17/2018 02/02/2021 Overview (02/02/2021): Gastric sleeve Cuenca's esophagus 12/12/2017 02/03/20 21 Migraine 12/10/2017 02/02/2021 Depressive disorder 05/31/2017 02/03/20 21 Carpal tunnel syndrome 01/29/201702/02 Eczema 01/29/2017 02/02/2021 Internal hemorrhoids 12/27/2016 021 Body mass index 40+ - severely obese 12/21/2016 02/02/2021 Gastroparesis syndrome 11/08/201602/02 Asthma 10/04/2016 02/02/2021 Allergic rhinitis 02/21/2016 02/02/2021 Gastroesophageal reflux disease 12/26/2015 02/02/2021 Cobalamin deficiency 03/18/2015 021 Vitamin D deficiency 03/18/2015 021 Hiatal hernia 05/17/2014 02/02/2021 Onychomycosis 12/28/2013 02/02/2021 Hereditary essential tremor 08/21/2013 02/02/2021 Polycystic ovary 08/20/2013 02/02/2021 Incomplete emptying of urinary bladder 08/20/2013 02/02/2021 Snoring 10/06/2012 02/02/2021 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 02/02/2021 Learning disability 10/30/2011 02/03/20 21 Hearing loss 10/03/2011 02/02/2021 Pernicious anemia 10/03/2011 02/02/2021 Immunizations Name Administration Dates Next Due Influenza (IM) Preservative Free 016,04/05/2014,01/09/2012, 1 Influenza TIV (IM) 02/18/2019,01/29/2017 Influenza, MDCK, PF, Quadrivalent 02/24/2021,,03/06/2018 PPD Test 12/24/2011 Pfizer SARS-COV-2 07/15/2020,06/24/2020 Pneumococcal Conjugate 13-Valent 02/21/2016 Pneumococcal Polysaccharide 08/11/2021, 3 Tdap 12/01/2018 Family History Medical History Relation Comments Diabetes Father Hypertension Father Relation Status Comments Father Alive Mother Alive Social History Tobacco Use Types Packs/Day Years Used Date Smoking Tobacco: Never Smokeless Tobacco: Never Tobacco Cessation:Counseling Given: No Alcohol Use Standard Drinks/Week Comments Yes 0 (1 standard drink = 0.6 oz pure alcohol) Alcoholic Drinks/day: Occasional social drink Comments Unknown Sex and Gender Information Value Date Recorded Sex Assigned at Not on file Legal Sex Female 5:09 PM EST Gender Identity Not on file Sexual Orientation Not on file Last Filed Vital Signs Vital Sign Reading Time Taken Comments Blood Pressure 120/76 02/17/2024 3:59 PM EST Pulse 90 02/17/2024 3:59 PM EST Temperature - - Respiratory Rate - - Oxygen Saturation 97% 02/15/2023 8:49 AM EST Inhaled Oxygen Concentration - - Weight 146 kg (321 lb) 02/17/2024 3:59 PM EST Height 160 cm (5' 3 ) 01/01/2020 12:00 PM EDT Body Mass Index 56.86 01/01/2020 12:00 PM EDT Plan of Treatment Upcoming Encounters Date Type Department Care Team (Late st Contact Info) Description 02/15/2025 3:30 PM EST Office Visit [facility] [address] [phone] Sumi Morales ARNP [address] [phone] Health Maintenance Due Date Last Done Comments Hepatitis B Vaccine (1 of 3 - 19+ 3-dose series) 1994 Influenza Vaccine (#1) 2023 , 02/23/2020, 02/23/2020, Additional history exists Colorectal Cancer Screening: Annual FOBT 01/04/2024 Colorectal Cancer Screening: Colonoscopy 01/04/2024 Colorectal Cancer Screening: Sigmoidoscopy 01/04/2024 Pneumococcal Vaccine: Pediat rics (0 to 5 Years) and At-Risk Patients (6 to 64 Years) (4 of 4 - PPSV23 or PCV20) 01/04/2040 08/11/2021, 02/21/2016, 03/27/2013 Insurance MEDICAID MEDICAID Care Teams Disposition Clerk Relationship Specialty Start Date End Date Balbina Woods MD [address] [phone] PCP - General 04/18/20
--- OUTSIDE RECORDS SUMMARY | 2024-06-12 09:16 | XMS_ITS | Encounter Summary ---
Author Organization [facility] Address [address] [place] [address] Care Team Providers Care Train System Operator Name Role Phone Balbina Woods MD Primary Care Provider [phone] Josue Fernandes MD Unavailable [phone] Encounter Details Date Type Department Care Team Description 04/03/2018 [place] Bottom Maker Report Medical Records [address] [place] [address] Khushboo Rivera PA-C Social History Tobacco Use [...] on filedocumented in this encounter Care Teams Train System Operator Relationship Specialty Start Date End Date Balbina Woods MD PCP - General Internal Medicine 02/14/17 Josue Fernandes MD 300 [facility] [address] [place], [place] [phone] Specialist Cardiovascular Disease 08/15/22 documented as of this encounter
--- OUTSIDE RECORDS SUMMARY | 2024-06-12 09:16 | XMS_ITS | Encounter Summary ---
Author Organization [facility] Address [address] [place] [address] Care Team Providers Care Commissary Clerk Name Role Phone Balbina Woods MD Primary Care Provider [phone] Josue Fernandes MD Unavailable [phone] Reason for Visit * Reason Onset Date Comments REFERRAL 12/22/2021 Patient does not qualify for plastic surgery. Encounter Details Date Type Department Care Team Description 12/22/2021 Telephone Radiology - [address] [address] Balbina Woods MD [address] [place] [phone] REFERRAL (Patient does not qualify for plastic surgery.) Social History Tobacco Use Types Packs/Day Years [...] suspected to have Coronavirus/COVID-19? No / Unsure 12/19/2021 8:58 AM EDT documented as of this encounter Miscellaneous Notes * Telephone Encounter - Hansa Burden M.A. - 01/04/2022 2:[address] Woods, This is FYI. I spoke with patient's father about the patient not qualify [place] a weight lose program * Telephone Encounter - Hansa Burden M.A. - 01/04/2022 1:12 PM EDT I attempted to call patient and left a voicemail to call back * Telephone Encounter - Balbina Woods MD - 12/22/2021 4:05 PM EDT Inform this to the pt * Telephone Encounter - Vineet Chao - 12/22/2021 11:53 AM EDT Paitent does not qualify for this surgery due to surgery guidelines. Paitent has to loose weight first Paitent BMI is greater then 30 Entered by Balbina Woods I will request a referral to plastic surgery. Reason for referral: morbid obesity ?? Is this surgery medically necessary? yes , recurrent fungal infections If the referral is not medically necessary, the patient will be responsible for payment of the services. Priority: Routine - schedule for next available appointment; Priority - visit within 4-6 weeks; Urgent - visit within a week; Emergency - visit today or tomorrow. Payor: Not third-alliance party related documented in this encounter Plan of Treatment Not on file documented as of this encounter Visit Diagnoses Not on filedocumented in this encounter Care Teams Commissary Clerk Relationship Specialty Start Date End Date Balbina Woods MD PCP - General Internal Medicine 02/14/17 Josue Fernandes MD [address] [place] [address] Specialist Cardiovascular Disease 08/15/22 documented as of this encounter
--- OUTSIDE RECORDS SUMMARY | 2024-06-12 09:16 | XMS_ITS | Encounter Summary ---
Author Organization [facility] Address [address] [place] [address] Care Team Providers Care Marketing Development Specialist Name Role Phone Balbina Woods MD Primary Care Provider [phone] Josue Fernandes MD Unavailable [phone] Reason for Visit * Reason Onset Date Comments Call From Home Care 10/15/2018 J & L Encounter Details Date Type Department Care Team Description 10/15/2018 Telephone Pulmonology - [place] 175 [facility] [address] [place] [phone] Chuyita Peoples MD 175 [place] [phone] Call From Home Care ([facility]) Social History Tobacco Use Types Packs/Day Years [...] encounter Miscellaneous Notes * Telephone Encounter - Katherine Don - 10/15/2018 2:31 PM EDT Araceli needs to have the order resent over due to the NPI number not being on the form. Please putthe NPI number on the form and refax it over to the number above. documented in this encounter Plan of Treatment Not on file documented as of this encounter Visit Diagnoses Not on filedocumented in this encounter Care Teams Marketing Development Specialist Relationship Specialty Start Date End Date Balbina Woods MD PCP - General Internal Medicine 02/14/17 Josue Fernandes MD [address] [place] [address] Specialist Cardiovascular Disease 08/15/22 documented as of this encounter
--- OUTSIDE RECORDS SUMMARY | 2024-06-12 09:16 | XMS_ITS | Encounter Summary ---
Author Organization [facility] Address [address] [place] [address] Care Team Providers Care Boring Machine Operator Production Name Role Phone Balbina Woods MD Primary Care Provider [phone] Josue Fernandes MD Unavailable Encounter Details Date Type Department Care Team Description 02/13/2022 SCAN Medical Records [address] [place] [phone] Todd Doty MD Social History Tobacco Use [...] suspected to have Coronavirus/COVID-19? No / Unsure 02/16/2022 9:27 AM EST documented as of this encounter Plan of Treatment Not on file documented as of this encounter Procedures Procedure Name Priority Date/Time Associated Diagnosis Comments OUTSIDE LAB Routine 02/13/2022 documented in this encounter Results * OUTSIDE LAB (02/13/2022) Provider Default LAB documented in this encounter Visit Diagnoses Not on filedocumented in this encounter Care Teams Boring Machine Operator Production Relationship Specialty Start Date End Date Balbina Woods MD PCP - General Internal Medicine 02/14/17 Josue Fernandes MD [facility] 154 [place], [place] [address] Specialist Cardiovascular Disease 08/15/22 documented as of this encounter
--- OUTSIDE RECORDS SUMMARY | 2024-06-12 09:16 | XMS_ITS | Encounter Summary ---
Author Organization [facility] Address [address] [place] [address] Care Team Providers Care Optical Instrument Specialist Name Role Phone Balbina Woods MD Primary Care Provider [phone] Josue Fernandes MD Unavailable [phone] Reason for Visit * Reason Onset Date Comments Provider Call Back 11/24/2018 Encounter Details Date Type Department Care Team Description 11/24/2018 Telephone Internal Medicine - [address], [address] [place] [address] Balbina Woods MD [address] [place] [phone] Provider Call Back Social History Tobacco Use Types Packs/Day Years [...] encounter Miscellaneous Notes * Telephone Encounter - Ester Fernandes M.A. - 12/31/2018 11:09 AM EDT Praveen is calling to check status. YASMEEN Vance wants to know if Inderall can be added for the patient for her tremors. It may affect her asthma so they need confirmation before prescribing. * Telephone Encounter - Ileana Ochoa M.A. - 11/24/2018 3:16 PM EDT Please advise * Telephone Encounter - Jovita Tripathi - 11/24/2018 8:44 AM EDT Caller requesting call back from provider: Is the caller the patient? NO If caller is not the patient, what is the callers name? Praveen from [facility] Callers relationship to patient? N/A If person calling is not the patient themselves, is there a verbal release in FYI or permanent comments for this person: NO Reason for call back: The PALety wants to know if Dr. Wright would okay them adding Inderal for her tremor. They dont know how severe her asthma is so want to make sure if its ok. Caller offered to speak with the nurse for assistance: YES Response: Patient offered to speak with nurse for assistance and patient agreed. Message forwarded to nurse. documented in this encounter Plan of Treatment Not on file documented as of this encounter Visit Diagnoses Not on filedocumented in this encounter Care Teams Optical Instrument Specialist Relationship Specialty Start Date End Date Balbina Woods MD PCP - General Internal Medicine 02/14/17 Josue Fernandes MD [address] [place] [address] Specialist Cardiovascular Disease 08/15/22 documented as of this encounter
--- OUTSIDE RECORDS SUMMARY | 2024-06-12 09:16 | XMS_ITS | Encounter Summary ---
Author Organization [facility] Address [address] [place] [address] Care Team Providers Care Linux Devops Engineer Name Role Phone Balbina Woods MD Primary Care Provider [phone] Josue Fernandes MD Unavailable [phone] Reason for Visit * Reason Comments E-prescribe Rx Request Encounter Details Date Type Department Care Team Description 06/18/2020 Refill Internal Medicine - [address], [address] [place] [address] Balbina Woods MD [address] [place] [phone] E-prescribe Rx Request Social History Tobacco [...] encounter Miscellaneous Notes * Telephone Encounter - Alex Greer - 06/20/2020 9:13 AM EDT OTILIA 02/13/20 NOV 07/01/20 documented in this encounter Plan of Treatment Not on file documented as of this encounter Visit Diagnoses Not on filedocumented in this encounter Care Teams Linux Devops Engineer Relationship Specialty Start Date End Date Balbina Woods MD PCP - General Internal Medicine 02/14/17 Josue Fernandes MD 300 [facility] [address] [place] [address] Specialist Cardiovascular Disease 08/15/22 documented as of this encounter
--- OUTSIDE RECORDS SUMMARY | 2024-06-12 09:16 | XMS_ITS | Encounter Summary ---
Author Organization [facility] Address [address] [place] [address] Care Team Providers Care Button Sewer Name Role Phone Balbina Woods MD Primary Care Provider [phone] Josue Fernandes MD Unavailable [phone] Reason for Visit * Reason Comments E-prescribe Rx Request Encounter Details Date Type Department Care Team Description 11/17/2018 Refill Internal Medicine - [address], [address] [place] [address] Balbina Woods MD [address] [place] [phone] E-prescribe Rx Request Social History Tobacco [...] encounter Miscellaneous Notes * Telephone Encounter - Oneida Deluca - 11/18/2018 8:11 AM EDT Patient would like script to be: E-PRESCRIBED/FAXED TO PHARMACY WHEN WAS THE PATIENT'S LAST APPOINTMENT IN ADULT MEDICINE? 09/17/2018 WHEN WAS THE LAST TIME THE PATIENT SAW THEIR PCP? Same as above Does patient have an upcoming appointment? Yes 02/07/2019 (THE MEDICATION REQUESTED IS ON THE MED LIST ABOVE) All of the medications requested were on the CURRENT MEDS list Did you check the Pharmacy information above?: YES Patient wants: 30 -day supply Is this a mail order prescription request ? NO If the refill is from a FAXED refill request what is the RX # listed on the fax? N/A Patients current insurance carrier is: Payor: [employer] FFS / Plan: [employer] / Product Type: MEDICAID RISK documented in this encounter Plan of Treatment Not on file documented as of this encounter Visit Diagnoses Not on filedocumented in this encounter Care Teams Button Sewer Relationship Specialty Start Date End Date Balbina Woods MD PCP - General Internal Medicine 02/14/17 Josue Fernandes MD [address] [place] [id number] Specialist Cardiovascular Disease 08/15/22 documented as of this encounter
--- OUTSIDE RECORDS SUMMARY | 2024-06-12 09:16 | XMS_ITS | Encounter Summary ---
Author Organization [facility] Address [address] [place] [address] Care Team Providers Care Perfect Binder Feeder Offbearer Name Role Phone Balbina Woods MD Primary Care Provider [phone] Josue Fernandes MD Unavailable [phone] Encounter Details Date Type Department Care Team Description 01/01/2020 Pot Operator Report Medical Records [address] [place] [address] Todd Doty MD Social History Tobacco Use [...] have Coronavirus / COVID-19? No / Unsure 12/18/2019 2:52 PM EDT documented as of this encounter Plan of Treatment Not on file documented as of this encounter Visit Diagnoses Not on filedocumented in this encounter Care Teams Perfect Binder Feeder Offbearer Relationship Specialty Start Date End Date Balbina Woods MD PCP - General Internal Medicine 02/14/17 Josue Fernandes MD [address] [facility] [address] [place], [place] [phone] Specialist Cardiovascular Disease 08/15/22 documented as of this encounter
--- OUTSIDE RECORDS SUMMARY | 2024-06-12 09:16 | XMS_ITS | Encounter Summary ---
Author Organization [facility] Address [address] [place] [address] Care Team Providers Care Senior Sustainability Consultant Name Role Phone Balbina Wodos MD Primary Care Provider [phone] Josue Fernandes MD Unavailable [phone] Reason for Visit * Reason Onset Date Comments TEST RESULTS 10/17/2021 Encounter Details Date Type Department Care Team Description 10/17/2021 Telephone Internal Medicine - [address], [address] [place] [address] Balbina Woods MD [address] [place] [phone] TEST RESULTS Social History Tobacco Use Types [...] suspected to have Coronavirus/COVID-19? No / Unsure 10/06/2021 9:16 AM EDT documented as of this encounter Miscellaneous Notes * Telephone Encounter - Theodora Gary - 10/19/2021 3:16 PM EDT Confirmation for Fax received * Telephone Encounter - Theodora Gary - 10/19/2021 2:46 PM EDT Refaxed to [phone] Att. Heath as requested. * Telephone Encounter - Azucena Leonardo Ava - 10/19/2021 2:18 PM EDT Please refax again father states still not received ATTN kumar- [phone] [facility] [phone] * Telephone Encounter - Azucena Leonardo Ava - 10/17/2021 11:29 AM EDT Refax canelo heath @ fax [phone] * Telephone Encounter - Carissa Kulkarni - 10/17/2021 8:38 AM EDT Patient calling back to please refax Quantiferon TB GOLD results to [facility] Att: Kumar [phone]. Patient states Kumar haven't received the fax just yet and patient needs this resultsso she can go there. Please refax. documented in this encounter Plan of Treatment Not on file documented as of this encounter Visit Diagnoses Not on filedocumented in this encounter Care Teams Senior Sustainability Consultant Relationship Specialty Start Date End Date Balbina Woods MD PCP - General Internal Medicine 02/14/17 Josue Fernandes MD [address] [place] [address] Specialist Cardiovascular Disease 08/15/22 documented as of this encounter
--- OUTSIDE RECORDS SUMMARY | 2024-06-12 09:16 | XMS_ITS | Encounter Summary ---
Author Organization [facility] Address [address] [place] [address] Care Team Providers Care Fondant Puff Maker Name Role Phone Balbina Woods MD Primary Care Provider [phone] Josue Fernandes MD Unavailable [phone] Encounter Details Date Type Department Care Team Description 09/28/2021 Orders Only Lab - [place] [address] [place] [id number] Balbina Woods MD [address] [place] [phone] Routine medical exam (Primary Dx) Social History Tobacco Use Types [...] suspected to have Coronavirus/COVID-19? No / Unsure 09/15/2021 8:15 AM EDT documented as of this encounter Plan of Treatment Not on file documented as of this encounter Results * QUANTIFERON TB GOLD (10/06/2021 9:16 AM EDT) [facility] QFT PLUS INTERPRETATION NEGATIVE NEGATIVE 10/07/2021 1:30 PM EDT [facility] 10/06/2021 9:16 AM EDT 10/06/2021 9:17 AM EDT Narrative [facility] - 10/07/2021 1:30 PM EDT Release to patient->Immediate Balbina Woods MD LAB [facility] documented in this encounter Visit Diagnoses Diagnosis Routine medical exam- Primary Routine general medical examination at a health care facility Routine medical exam Routine general medical examination at a health care facility documented in this encounter Care Teams Fondant Puff Maker Relationship Specialty Start Date End Date Balbina Woods MD PCP - General Internal Medicine 02/14/17 Josue Fernandes MD [address] [place] [address] Specialist Cardiovascular Disease 08/15/22 documented as of this encounter
--- OUTSIDE RECORDS SUMMARY | 2024-06-12 09:16 | XMS_ITS | Encounter Summary ---
Author Organization [facility] Address [address] [place] [address] Care Team Providers Care Equipment Records Supervisor Name Role Phone Balbina Woods MD Primary Care Provider [phone] Josue Fernandes MD Unavailable [phone] Encounter Details Date Type Department Care Team Description 09/03/2017 Ice Cream Scooper Report Medical Records [address] [place] [address] Balbina Woods MD [address] [place] [phone] Social History Tobacco Use Types Packs/Day Years Used Date Smoking Tobacco: Never Assessed Sex Assigned at Date Recorded Not on file Job Start Date Occupation Industry Not on file Not on file Not on file documented as of this encounter Plan of Treatment Not on file documented as of this encounter Visit Diagnoses Not on filedocumented in this encounter Care Teams Equipment Records Supervisor Relationship Specialty Start Date End Date Balbina Woods MD PCP - General Internal Medicine 02/14/17 Josue Fernandes MD [address] [place] [address] [address] [place], [place] [phone] Specialist Cardiovascular Disease 08/15/22 documented as of this encounter
--- OUTSIDE RECORDS SUMMARY | 2024-06-12 09:16 | XMS_ITS | Encounter Summary ---
Author Organization [facility] Address [address] [place] [address] Care Team Providers Care Fretted String Instrument Repairer Name Role Phone Balbina Woods MD Primary Care Provider [phone] Josue Fernandes MD Unavailable [phone] Encounter Details Date Type Department Care Team Description 06/09/2018 Client Relationship Manager Report Medical Records [address] [place] [phone] Desilets, Christophe Guillen MD Social History Tobacco Use Types Packs/Day [...] on filedocumented in this encounter Care Teams Fretted String Instrument Repairer Relationship Specialty Start Date End Date Balbina Woods MD PCP - General Internal Medicine 02/14/17 Josue Fernandes MD 300 [facility] [address] [place], [place] [phone] Specialist Cardiovascular Disease 08/15/22 documented as of this encounter
--- OUTSIDE RECORDS SUMMARY | 2024-06-12 09:16 | XMS_ITS | Encounter Summary ---
Author Organization [facility] Address [address] [place] [address] Care Team Providers Care Spring Coiling Machine Setter Name Role Phone Balbina Woods MD Primary Care Provider [phone] Josue Fernandes MD Unavailable [phone] Encounter Details Date Type Department Care Team Description 03/17/2020 Telephone Vascular Surgery - [address] [place] [phone] Doni Castillo MD [facility] [address] [phone] Social History Tobacco Use Types Packs/Day Years [...] encounter Miscellaneous Notes * Telephone Encounter - Rhona Lea - 03/17/2020 12:42 PM EST Lvm advising pt we cancelled do to her not having US done yet.i advised her to call once pvc schedules her us. documented in this encounter Plan of Treatment Not on file documented as of this encounter Visit Diagnoses Not on filedocumented in this encounter Care Teams Spring Coiling Machine Setter Relationship Specialty Start Date End Date Balbina Woods MD PCP - General Internal Medicine 02/14/17 Josue Fernandes MD [address] [facility] [address] [place] [address] Specialist Cardiovascular Disease 08/15/22 documented as of this encounter
--- OUTSIDE RECORDS SUMMARY | 2024-06-12 09:16 | XMS_ITS | Encounter Summary ---
Author Organization [facility] Address [address] [place] [address] Care Team Providers Care Offset Lithographic Press Operator Name Role Phone Balbina Woods MD Primary Care Provider [phone] Josue Fernandes MD Unavailable [phone] Encounter Details Date Type Department Care Team Description 10/17/2018 Interline Clerk Report Medical Records [address] [place] [address] Michelle Dewitt NP Social History Tobacco Use [...] on filedocumented in this encounter Care Teams Offset Lithographic Press Operator Relationship Specialty Start Date End Date Balbina Woods MD PCP - General Internal Medicine 02/14/17 Josue Fernandes MD 300 [facility] [address] [place], [place] [phone] Specialist Cardiovascular Disease 08/15/22 documented as of this encounter
== END 2024-06-12 09:35 | disposition home or self-care (01) ==
PROVIDERS: PCP Internal Medicine; Visit Provider Internal Medicine
DX: M25.511 Pain in right shoulder (principal); G89.29 Other chronic pain; M25.512 Pain in left shoulder
CPT/HCPCS: 20611

== ENCOUNTER → 2024-06-12 08:40 | Outpatient (BNVA) | payer OTHER, SELFPAY | PROVIDERS: PCP Internal Medicine; Visit Provider Internal Medicine | DX: M25.511 Pain in right shoulder (principal); M25.512 Pain in left shoulder; G89.29 Other chronic pain | CPT/HCPCS: 20611 ==